=== PATIENT | female | born 1965 | race Caucasian/White ===

== ENCOUNTER → 2017-12-14 | Outpatient (CLI) | payer BC ==
[2017-12-14 14:16] LABS: ESTIMATED AVERAGE GLUCOSE 103 MG/DL (60-110); HEMOGLOBIN A1c 5.2 %
[2017-12-14 14:20] LABS: ALBUMIN 4.1 GM/DL (3.2-5.2); ALBUMIN/GLOBULIN RATIO 1.21 (1.00-1.93); ALKALINE PHOSPHATASE 83 U/L (45-117); ALT/SGPT 21 U/L (12-78); ANION GAP 7 MEQ/L (8-16); AST/SGOT 21 U/L (7-37); BILIRUBIN,TOTAL 0.7 MG/DL (0.2-1.0); BLOOD UREA NITROGEN 18 MG/DL (7-18); CALCIUM LEVEL 8.9 MG/DL (8.5-10.1); CARBON DIOXIDE LEVEL 28 MEQ/L (21-32); CHLORIDE LEVEL 106 MEQ/L (98-107); CHOLESTEROL LEVEL 215 MG/DL (<200); CHOLESTEROL RISK RATIO 2.986 (<5); CREATININE FOR GFR 0.59 MG/DL (0.55-1.30); FREE T4 1.11 NG/DL (0.76-1.46); GLOMERULAR FILTRATION RATE > 60.0 (>51); GLUCOSE, FASTING 102 MG/DL (70-100); HDL CHOLESTEROL 72 MG/DL (>40); LDL CHOLESTEROL 127.4 MG/DL (<100); NON-HDL-C 143 MG/DL; POTASSIUM SERUM 4.4 MEQ/L (3.5-5.1); SODIUM LEVEL 141 MEQ/L (136-145); TOTAL PROTEIN 7.5 GM/DL (6.4-8.2); TRIGLYCERIDES LEVEL 78 MG/DL (<150)
[2017-12-14 14:48] LABS: TOTAL 25(OH) VITAMIN D 25.9 NG/ML (30.0-100.0)
== END ==
LOC: M SMT 08:11
DX: F32.9 Major depressive disorder, single episode, unspecified (principal); E55.9 Vitamin D deficiency, unspecified; Z83.3 Family history of diabetes mellitus
CPT/HCPCS: 84443

== ENCOUNTER → 2018-08-16 | Outpatient (REF) | payer BC ==
[2018-08-16 18:49] LABS: AMORPHOUS SEDIMENT SMALL (NEGATIVE); APPEARANCE, URINE CLOUDY (CLEAR); BACTERIA, URINE AUTO 3+ (NEGATIVE); BILIRUBIN, URINE AUTO NEGATIVE (NEGATIVE); BLOOD, URINE BLOOD 3+ (NEGATIVE); COLOR, URINE YELLOW (YELLOW); GLUCOSE, URINE (UA) AUTO NEGATIVE (NEGATIVE); KETONE, URINE AUTO NEGATIVE (NEGATIVE); LEUKOCYTE ESTERASE, URINE AUTO 3+ (NEGATIVE); MUCUS, URINE SMALL (NEGATIVE); NITRITE, URINE AUTO POSITIVE (NEGATIVE); PROTEIN, URINE AUTO 1+ mg/dL (NEGATIVE); RBC, URINE AUTO 93 /HPF (0-3); SPECIFIC GRAVITY URINE AUTO 1.015 (1.002-1.035); SQUAMOUS EPITHELIAL CELL UR AU 1 /HPF (0-6); UROBILINOGEN, URINE AUTO 0.2 mg/dL (0.0-2.0); WBC, URINE AUTO 135 /HPF (0-3)
== END ==
LOC: M LAB REF 17:04
DX: N39.0 Urinary tract infection, site not specified (principal)
CPT/HCPCS: 81001

== ENCOUNTER → 2019-07-04 | Outpatient (CLI) | payer BC ==
[2019-07-04 13:58] LABS: FREE T4 1.06 NG/DL (0.76-1.46); THYROID STIMULATING HORMONE 1.56 uIU/ML (0.358-3.740)
[2019-07-04 14:04] LABS: TOTAL 25(OH) VITAMIN D 29.8 NG/ML (30.0-100.0)
== END ==
LOC: M SMT 09:49
PROVIDERS: ATTEND Nurse Practitioner Family
DX: E03.9 Hypothyroidism, unspecified (principal); E55.9 Vitamin D deficiency, unspecified

== ENCOUNTER → 2019-09-13 | Outpatient (REF) | payer BC ==
[2019-09-16 14:09] LABS: HPV HYBRID CAPTURE II Negative (Negative)
== END ==
LOC: M SFHCWAGY 09:34
PROVIDERS: ATTEND Nurse Practitioner Family
DX: Z12.4 Encounter for screening for malignant neoplasm of cervix (principal)
CPT/HCPCS: 87624; G0123

== ENCOUNTER → 2019-09-13 | Outpatient (CLI) | payer BC ==
--- NOTE | 2019-09-13 10:52 | REPMRS ---
Patient History The patient states she had a clinical breast exam in 08/2019. Family history of colorectal cancer at age 50 or over in maternal grandfather. 3D TOMOSYNTHESIS WAS PERFORMED. The Zaheer Murphy lifetime risk for breast cancer is 8.5%. Digital Woman Screen Mammo: September 13, 2019 - Exam #: [id number] Bilateral CC and MLO view(s) were taken. Technologist: Jo Danielson, Technologist Prior study comparison: April 01, 2016, digital woman screen mammo performed at [facility]. October 03, 2014, digital woman screen mammo performed at [facility]. FINDINGS: The breast tissue is heterogeneously dense. This may lower the sensitivity of mammography. There has been no change in the appearance of the mammogram from the prior studies. There is a moderate amount of residual fibroglandular tissue which is fairly symmetric. There is no interval development of dominant mass, areas of architectural distortion, or clustered microcalcification typical of malignancy. Assessment: BI-RADS/ACR category 1 mammogram. Negative Mammogram. Recommendation Routine screening mammogram in 1 year (for women over age 40). This mammogram was interpreted with the aid of an FDA-approved computer-aided dectection system. Electronically Signed By: Fitz Chong MD 09/13/19 [id number]
== END ==
LOC: M WHC 09:11
PROVIDERS: ATTEND Nurse Practitioner Family
DX: Z12.31 Encounter for screening mammogram for malignant neoplasm of breast (principal)

== ENCOUNTER → 2019-09-23 | Outpatient (CLI) | payer BC ==
--- NOTE | 2019-09-23 11:41 | REP ---
Pelvic ultrasound including transabdominal and endovaginal imaging: Next the the patient has had surgical removal of the uterus approximate 28 years ago. The bladder is moderately distended. There is no identifiable uterus. The right ovary could not be identified on transabdominal or endovaginal imaging. Left ovary: The left ovary measures 1.7 x 1.6 x 1.7 cm and is normal size. There is no dominant mass or cyst. There is no free fluid in the pelvis. Impression: The left ovary is unremarkable. The right ovary could not be identified. The uterus is surgically absent. Electronically Signed by Fitz Vincent MD 09/23/2019 11:34 A
== END ==
LOC: M RAD 10:34
PROVIDERS: ATTEND Nurse Practitioner Family
DX: R10.2 Pelvic and perineal pain (principal)

== ENCOUNTER 2021-04-01 14:50 | Observation (INO) | payer BC ==
[~2021-04-01] VITALS: Ht 165.1 cm; Wt 53.2 kg
[2021-04-01] MEDS ORDERED: VALA500T5 PO (15:03)
[2021-04-01] MEDS ORDERED: NS 1,000 ML IV ONE ×3 (15:40→18:45)
[2021-04-01] MEDS ORDERED: ONDANSETRON 4MG/2ML VIAL IV ONE ×2 (15:40→16:50)
--- NOTE | 2021-04-01 16:03 | REP ---
INDICATION: vomitiung. COMPARISON: None TECHNIQUE: The technique utilized in obtaining the radiograph has magnified the cardiac silhouette and attenuated the interstitial markings. FINDINGS: The superior mediastinal structures are midline. The heart is not enlarged. The diaphragmatic surfaces of the lungs are regular and the costophrenic angles are clear. The pulmonary davis are clear. The visualized osseous structures are intact. IMPRESSION: There is no acute cardiopulmonary disease. <Electronically signed by Adán Malik > 04/01/21 [id number]
[2021-04-01 16:24] LABS: BASO % 0.3 % (0.0-1.0); HEMATOCRIT 39.7 % (36.0-47.0); HEMOGLOBIN 13.4 g/dl (12.0-15.5); LYMPH # 0.6 10^3/uL (1.5-5.0); MEAN CORPUSCULAR HEMOGLOBIN 30.8 pg (27.0-33.0); MEAN CORPUSCULAR HGB CONC 33.8 g/dl (32.0-36.5); MEAN CORPUSCULAR VOLUME 91.3 fl (80.0-96.0); MONO # 0.1 10^3/uL (0.0-0.8); MONO % 1.1 % (2.0-8.0); NEUTROPHILS # 9.6 10^3/uL (1.5-8.5); NEUTROPHILS % 91.9 % (36.0-66.0); PLATELET COUNT, AUTOMATED 263 10^3/uL (150-450); RED BLOOD COUNT 4.35 10^6/uL (4.00-5.40); WHITE BLOOD COUNT 10.5 10^3/uL (4.0-10.0)
--- NOTE | 2021-04-01 16:33 | REP ---
INDICATION: headache, vomiting, sp hysterectomy. COMPARISON: 11/10/2014 TECHNIQUE: 4.5 mm contiguous transaxial sections were obtained from the skull base to the cerebral convexities with thin cuts through the posterior fossa without the administration of intravenous contrast. FINDINGS: The ventricles and sulci are consistent with the patient's age. There are no extra-axial fluid collections. There is no mass effect. The deep cerebral white matter is consistent with the patient's age. The orbital and petrous structures, cerebellopontine angles, and posterior fossa are unremarkable. The sella turcica, cavernous, and paracavernous structures are essentially unremarkable. The visualized portions of the paranasal sinuses and mastoid air cells are clear. Images of the skull base show no gross abnormality. IMPRESSION: Essentially unremarkable CT examination of the brain. No significant change from the prior exam. <Electronically signed by Adán Malik > 04/01/21 [id number]
[2021-04-01 16:44] LABS: ALT/SGPT 45 U/L (12-78); AMYLASE 42 U/L (25-115); BILIRUBIN,DIRECT 0.1 MG/DL (0.0-0.2); BILIRUBIN,TOTAL 0.4 MG/DL (0.2-1.0); CK-MB VALUE MASS 1.2 NG/ML (<3.6); CPK CREATINE PHOSPHOKINASE 75 U/L (26-192); LIPASE 48 U/L (73-393); TOTAL PROTEIN 7.6 GM/DL (6.4-8.2); TROPONIN I < 0.02 NG/ML (< 0.10)
[2021-04-01] MEDS ORDERED: MORPHINE 2 MG/ML 1ML VIAL (J2270) IV ONE (16:50)
[2021-04-01] MEDS ORDERED: ISOVUE-370 76% 100ML VIAL As Ordered ONE (17:29)
--- NOTE | 2021-04-01 18:29 | REPVR ---
PROCEDURE INFORMATION: Exam: CTA Chest With Contrast Exam date and time: 04/01/2021 5:32 PM Age: 55 years old Clinical indication: Shortness of breath; Additional info: SOB TECHNIQUE: Imaging protocol: Computed tomographic angiography of the chest with contrast. 3D rendering (Not supervised by radiologist): MIP and/or 3D reconstructed images were created by the technologist. Radiation optimization: All CT scans at this facility use at least one of these dose optimization techniques: automated exposure control; mA and/or kV adjustment per patient size (includes targeted exams where dose is matched to clinical indication); or iterative reconstruction. Contrast material: ISOVUE 370; Contrast volume: 100 ml; Contrast route: INTRAVENOUS (IV); COMPARISON: VT Chest, 1 view 04/01/2021 3:46 PM FINDINGS: Pulmonary arteries: No CT evidence of acute pulmonary embolism. Aorta: No CT evidence of acute thoracic aortic dissection, thoracic aneurysm or acute intramural thoracic aortic hematoma. Lungs: Both lungs are well-aerated. Multiple small peripheral pleural-based solid intrapulmonary nodules are seen in the right upper lobe, on images 35 through 66 of series 401. These measure less than 5 mm in AP diameter. Pleural spaces: See "Lungs" finding. Heart: The heart size is normal. Normal pulmonary vasculature. No significant coronary artery calcification is present. Lymph nodes: Unremarkable. No enlarged lymph nodes. Bones/joints: The bony structures of the chest are normal. Soft tissues: Unremarkable. IMPRESSION: 1. No CT evidence of acute pulmonary embolism. 2. No CT evidence of acute thoracic aortic dissection, thoracic aneurysm or acute intramural thoracic aortic hematoma. 3. The heart size is normal. Normal pulmonary vasculature. No significant coronary artery calcification is present. 4. Both lungs are well-aerated. Multiple small peripheral pleural-based solid intrapulmonary nodules are seen in the right upper lobe, on images 35 through 66 of series 401. These measure less than 5 mm in AP diameter. For patients at low risk for lung cancer (minimal or absent history of smoking and of other known risk factors), no routine follow-up is indicated. For patients at high risk (history of smoking or of other known risk factors), consider optional CT Chest at 12 months. Reference: Charis H, et al. Guidelines for Management of Incidental Pulmonary Nodules Detected on CT Images: From the Fleischner Society 2017. Radiology. 2017;284(1):228-243. 5. The bony structures of the chest are normal. Electronically signed by: Maninder Penaloza On 04/01/2021 18:29:26 PM
--- NOTE | 2021-04-01 18:34 | REPVR ---
PROCEDURE INFORMATION: Exam: CT Abdomen And Pelvis With Contrast Exam date and time: 04/01/2021 5:32 PM Age: 55 years old Clinical indication: Abdominal pain; Generalized; Additional info: Abdominal pain, vomtiing TECHNIQUE: Imaging protocol: Computed tomography of the abdomen and pelvis with contrast. Radiation optimization: All CT scans at this facility use at least one of these dose optimization techniques: automated exposure control; mA and/or kV adjustment per patient size (includes targeted exams where dose is matched to clinical indication); or iterative reconstruction. Contrast material: ISOVUE 370; Contrast volume: 100 ml; Contrast route: INTRAVENOUS (IV); COMPARISON: US PELVIC NON-OB COMPLETE 09/23/2019 10:51 AM FINDINGS: Liver: Normal. No mass. Gallbladder and bile ducts: Normal. No calcified stones. No ductal dilation. Pancreas: Normal. No ductal dilation. Spleen: Normal. No splenomegaly. Adrenal glands: Normal. No mass. Kidneys and ureters: Normal. No hydronephrosis. Stomach and bowel: Unremarkable. No obstruction. No mucosal thickening. Appendix: No evidence of appendicitis. Intraperitoneal space: Unremarkable. No free air. No significant fluid collection. Vasculature: Unremarkable. No abdominal aortic aneurysm. Lymph nodes: Unremarkable. No enlarged lymph nodes. Urinary bladder: Unremarkable as visualized. Reproductive: Unremarkable as visualized. Bones/joints: Unremarkable. No acute fracture. Soft tissues: Unremarkable. IMPRESSION: No acute findings. Electronically signed by: Maninder Penaloza On 04/01/2021 18:34:33 PM
--- NOTE | 2021-04-01 20:07 | HPEPDOC ---
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 Patient states that her headaches began last night and were severe in nature. Patient states that she took tylenol and motrin and went to bed and went to work this morning. Patient states that she subsequently developed nausea and severe vomiting. Patient states that she is not sure how much she has vomited but denies any hematemesis or coffee ground emesis. Patients states that as of my exam, she is having waves of severe nausea, mild/moderate abd pain and a sense of impending doom like she is going to vomit. Patient states that her symptoms come and go every few minutes. Patient states that she does not have a headache right now but it comes and goes as well. Patient also admits to rigors and fevers. Patient denies neck pain, neck stiffness, vision change, paresthesia, ataxia, hemiparesis, seizure activity, dark stool, bloody stool, calf pain, back pain, chest pain, sob. W/u in ED only significant for elevated lactic acid of 2.6] PAST MEDICAL HISTORY: 1. [Endometriosis PAST SURGICAL HISTORY: 1. [Reviewed - none SOCIAL HISTORY: Tobacco use:[Denies] ETOH: [Denies] Illicit drug use: [Denies] FAMILY HISTORY: Heart disease, NM ALLERGIES: Please see below. REVIEW OF SYSTEMS: CONSTITUTIONAL: [See HPI]. HEENT: [Denies uri sx.]. CARDIOVASCULAR: [See HPI]. RESPIRATORY: [See HPI]. GASTROINTESTINAL: [See HPI]. GENITOURINARY: [Denies dysuria]. SKIN: [Denies rash]. MUSCULOSKELETAL: [Denies back pain, neck pain.]. NEUROLOGICAL: [See HPI]. ENDOCRINE: [Denies hx of DM]. HEMATOLOGIC/LYMPHATIC: [Denies easy bruising]. HOME MEDICATIONS: Please see below. PHYSICAL EXAMINATION: VITAL SIGNS: Please see below. GENERAL APPEARANCE: [This is a 55y/o female who appears older than her stated age. Patient is restless in bed and rocking and rolling back and forth constantly during exam. Patient appears anxious and uncomfortable and is moaning frequently]. HEENT: [No mass or lesion. EOMI. No scleral icterus. Nares patent. oral mucosa dry. No tenderness to neck palpation. No nuchal rigidity. Bedside meningitis maneuvers negative.]. CARDIOVASCULAR: [Regular rate, rhythm. No murmurs, rubs, gallops]. LUNGS: [Good airflow appreciated b/l. No wheezing, rales, rhonchi.]. ABDOMEN: [Soft, tender to epigastric region.]. MUSCULOSKELETAL: [No joint deformity. ]. EXTREMITIES: [No peripheral edema noted. No overlying skin changes. Pulses palpable.]. NEUROLOGICAL: [Sensation grossly intact. Patient moves all fours freely during exam. Strength 5/5 b/l. Speech clear. A+Ox3. No focal deficits]. PSYCHIATRIC: [Mood and affect appear appropriate.]. LABORATORY DATA: See below. IMAGING: [Heat CT: FINDINGS: The ventricles and sulci are consistent with the patient's age. There are no extra-axial fluid collections. There is no mass effect. The deep cerebral white matter is consistent with the patient's age. The orbital and petrous structures, cerebellopontine angles, and posterior fossa are unremarkable. The sella turcica, cavernous, and paracavernous structures are essentially unremarkable. The visualized portions of the paranasal sinuses and mastoid air cells are clear. Images of the skull base show no gross abnormality. IMPRESSION: Essentially unremarkable CT examination of the brain. No significant change from the prior exam. CXR: FINDINGS: The superior mediastinal structures are midline. The heart is not enlarged. The diaphragmatic surfaces of the lungs are regular and the costophrenic angles are clear. The pulmonary davis are clear. The visualized osseous structures are intact. IMPRESSION: There is no acute cardiopulmonary disease FINDINGS: Liver: Normal. No mass. Gallbladder and bile ducts: Normal. No calcified stones. No ductal dilation. Pancreas: Normal. No ductal dilation. Spleen: Normal. No splenomegaly. Adrenal glands: Normal. No mass. Kidneys and ureters: Normal. No hydronephrosis. Stomach and bowel: Unremarkable. No obstruction. No mucosal thickening. Appendix: No evidence of appendicitis. Intraperitoneal space: Unremarkable. No free air. No significant fluid collection. Vasculature: Unremarkable. No abdominal aortic aneurysm. Lymph nodes: Unremarkable. No enlarged lymph nodes. Urinary bladder: Unremarkable as visualized. Reproductive: Unremarkable as visualized. Bones/joints: Unremarkable. No acute fracture. Soft tissues: Unremarkable. IMPRESSION: No acute findings. CTA Chest: FINDINGS: Pulmonary arteries: No CT evidence of acute pulmonary embolism. Aorta: No CT evidence of acute thoracic aortic dissection, thoracic aneurysm or acute intramural thoracic aortic hematoma. Lungs: Both lungs are well-aerated. Multiple small peripheral pleural-based solid intrapulmonary nodules are seen in the right upper lobe, on images 35 through 66 of series 401. These measure less than 5 mm in AP diameter. Pleural spaces: See "Lungs" finding. Heart: The heart size is normal. Normal pulmonary vasculature. No significant coronary artery calcification is present. Lymph nodes: Unremarkable. No enlarged lymph nodes. Bones/joints: The bony structures of the chest are normal. Soft tissues: Unremarkable. IMPRESSION: 1. No CT evidence of acute pulmonary embolism. 2. No CT evidence of acute thoracic aortic dissection, thoracic aneurysm or acute intramural thoracic aortic hematoma. 3. The heart size is normal. Normal pulmonary vasculature. No significant coronary artery calcification is present. 4. Both lungs are well-aerated. Multiple small peripheral pleural-based solid intrapulmonary nodules are seen in the right upper lobe, on images 35 through 66 of series 401. These measure less than 5 mm in AP diameter. For patients at low risk for lung cancer (minimal or absent history of smoking and of other known risk factors), no routine follow-up is indicated. For patients at high risk (history of smoking or of other known risk factors), consider optional CT Chest at 12 months. ] MICROBIOLOGY: Please see below. ASSESSMENT: [This is a 55 y/o female with a pmh of recently diagnosed HSV being treated with daily oral suppressive valtrex who presents to the ED with with her with cc of acute onset headache, and intractable nausea/vomiting x1 day. Workup done so far has been grossly unrevealing.]. . PLAN: 1. [Headache/Nausea/Vomiting - Unclear etiology at this time. Broad ddx includes cannabinoid hyperemesis syndrome, norovirus, gastroenteritis, valtrex toxicity, NM preclude - Elevated lactic in ED likely secondary to repeated vomiting - IV fluid rehydration, zofran and reglan for n/v, toradol for abd pain - Monitor for fevers to discern infectious etiology - Trend troponins overnight to r/o mi prelude - Patient denies recreational drug use, however a uds showed high cannabinoids l ending credence to possible cannabinoid hyperemesis - Holding valtrex at this time to see if patient's symptoms improve without it. Patient has slightly elevated AST which could reflect some toxicity as this is her only daily medication. - Admit to med surg tele for symptomatic treatment and monitoring 2. Lung nodules - Incidental finding on CT. Can follow up outpatient for arrangement of monitor ing. DVT prophylaxis - Teds and SCDs]. Vital Signs Vital Signs Date Time Temp Pulse Resp B/P (MAP) Pulse Ox O2 Delivery O2 Flow Rate FiO2 04/01/21 18:30 04/01/21 18:30 97.7 78 18 100 Room Air Laboratory Data Labs 24H Laboratory Tests 2 04/01/21 15:39: POC Glucose (Misc Panel) 187H, POC Sodium (Misc Panel) 141, POC Potassium (Misc Panel) 3.5, POC Chloride (Misc Panel) 106, POC Total CO2 (Misc Panel) 24.0, POC Blood Urea Nitrogen (Misc Panel 20, POC Ionized Calcium (Misc Panel) 4.6, POC Creatinine (Misc Panel) 0.5L, POC Hematocrit (Misc Panel) 41.0 04/01/21 16:01: Immature Granulocyte % (Auto) 0.7, Neutrophils (%) (Auto) 91.9H, Lymphocytes (%) (Auto) 6.0L, Monocytes (%) (Auto) 1.1L, Eosinophils (%) (Auto) 0.0, Basophils (%) (Auto) 0.3, Neutrophils # (Auto) 9.6H, Lymphocytes # (Auto) 0.6L, Monocytes # (Auto) 0.1, Eosinophils # (Auto) 0.0, Basophils # (Auto) 0.0, Nucleated Red Blood Cells % (auto) 0.0, Urine Color YELLOW, Urine Appearance CLOUDYH, Urine pH 9.0, Urine Specific [place] 1.017, Urine Protein 1+H, Urine Glucose (UA) 2+H, Urine Ketones 2+H, Urine Blood 1+H, Urine Nitrite NEGATIVE, Urine Bilirubin NEGATIVE, Urine Urobilinogen 0.2, Urine Leukocyte Esterase NEGATIVE, Urine WBC (Auto) 10H, Urine RBC (Auto) 5H, Urine Hyaline Casts (Auto) 0, Urine Bacteria (Auto) NEGATIVE, Urine Squamous Epithelial Cells 0, Urine Amorphous Sediment SMALLH, Urine Sperm (Auto) , Lactic Acid Level 2.6*H, Total Bilirubin 0.4, Direct Bilirubin 0.1, Aspartate Amino Transf (AST/SGOT) 38H, Alanine Aminotransferase (ALT/SGPT) 45, Alkaline Phosphatase 78, Total Creatine Kinase 75, Creatine Kinase MB 1.2, Creatine Kinase MB Relative Index 1.60, Troponin I < 0.02, Total Protein 7.6, Albumin 4.0, Albumin/Globulin Ratio 1.1L, Amylase Level 42, Lipase 48L 04/01/21 18:35: CBC/BMP Laboratory Tests 04/01/21 16:01 Microbiology Microbiology 04/01/21 Respiratory Virus Panel (PCR) (MARIO), Received Pending 04/01/21 Blood Culture, Received Pending 04/01/21 Blood Culture, Received Pending Home Medications Scheduled Valacyclovir HCl (Valacyclovir) 500 Mg Tablet, 500 MG PO DAILY Allergies Coded Allergies: No Known Drug Allergies (Verified Allergy, Unknown, 04/01/21) A-FIB/CHADSVASC A-FIB History Current/History of A-Fib/PAF?: No Attending Note Attending Note time of service 727pm Ms. Tolentino is 55 yr old w endometriosis & hysterectomy who presented w c/o WRIGHT, n/v, cramping abdominal pain that precedes diarrhea and chills; she will be admitted to r/o ACS, lactic acidosis 2/2 dehydration, transaminitis and possible gastroenteritis. rest per TREY Castro's H&P TIMMY CASTRO April 01, 2021 20:07 NISHA SUMMERS MD April 01, 2021 20:44
[2021-04-01 20:34] LABS: CHLAMYDIA DNA AMPLIFICATION NEGATIVE (NEGATIVE); GC DNA AMPLIFICATION NEGATIVE (NEGATIVE)
[2021-04-01] MEDS: ONDANSETRON 4MG/2ML VIAL IV SCH (20:37)
[2021-04-01] MEDS: NS 1,000 ML IV SCH (20:37)
[2021-04-01] MEDS: KETOROLAC 30 MG/ML 1ML VIAL IV PRN (20:37)
[2021-04-01 20:46] LABS: AMPHETAMINES URINE REFLEX NEGATIVE (NEGATIVE); BARBITURATES URINE REFLEX NEGATIVE (NEGATIVE); BENZODIAZEPINES URINE REFLEX NEGATIVE (NEGATIVE); COCAINE METABOLITE URINE REFLE NEGATIVE (NEGATIVE); METHADONE URINE REFLEX NEGATIVE (NEGATIVE); OPIATES URINE REFLEX NEGATIVE (NEGATIVE); PHENCYCLIDINE URINE REFLEX NEGATIVE (NEGATIVE)
[2021-04-01 21:04] LABS: HEMOGLOBIN A1c 5.6 %
[2021-04-01 21:47] LABS: CANNABINOIDS URINE REFLEX PENDING CONFIRMATION (NEGATIVE)
[2021-04-01 21:58] LABS: HEPATITIS A ANTIBODY IGM NEGATIVE (NEGATIVE); HEPATITIS B CORE ANTIBODY IGM NEGATIVE (NEGATIVE); HEPATITIS B SURFACE ANTIGEN NEGATIVE (NEGATIVE)
[2021-04-01 22:31] VITALS: BP 157/97
[2021-04-01] MEDS ORDERED: METOCLOPRAMIDE INJ 10MG/2ML VIAL (J2765 PER 1) IV PRN (22:50)
[2021-04-01] MEDS ORDERED: ONDANSETRON 4MG/2ML VIAL IV SCH ×2 (23:00)
[2021-04-02] MEDS: ONDANSETRON 4MG/2ML VIAL IV SCH ×2 (01:58→08:00)
[2021-04-02 02:00] VITALS: BP 98/60
[2021-04-02] MEDS: NS 1,000 ML IV SCH (05:28)
--- NOTE | 2021-04-02 05:58 | ECGEPIP ---
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
[2021-04-02 06:00] VITALS: BP 100/59
[2021-04-02 06:28] LABS: HEMATOCRIT 35.2 % (36.0-47.0); HEMOGLOBIN 11.8 g/dl (12.0-15.5); MEAN CORPUSCULAR HEMOGLOBIN 30.8 pg (27.0-33.0); MEAN CORPUSCULAR HGB CONC 33.5 g/dl (32.0-36.5); MEAN CORPUSCULAR VOLUME 91.9 fl (80.0-96.0); PLATELET COUNT, AUTOMATED 218 10^3/uL (150-450); RED BLOOD COUNT 3.83 10^6/uL (4.00-5.40); WHITE BLOOD COUNT 11.1 10^3/uL (4.0-10.0)
[2021-04-02 06:52] LABS: BLOOD UREA NITROGEN 16 MG/DL (7-18); CALCIUM LEVEL 8.2 MG/DL (8.5-10.1); CARBON DIOXIDE LEVEL 24 MEQ/L (21-32); CHLORIDE LEVEL 111 MEQ/L (98-107); CREATININE FOR GFR 0.52 MG/DL (0.55-1.30); GLOMERULAR FILTRATION RATE > 60.0 (>51); GLUCOSE, FASTING 116 MG/DL (70-100); POTASSIUM SERUM 3.3 MEQ/L (3.5-5.1); SODIUM LEVEL 144 MEQ/L (136-145); TROPONIN I < 0.02 NG/ML (< 0.10)
[2021-04-02] MEDS ORDERED: POTASSIUM CHLORIDE 10 MEQ SR TABLET PO ONE (08:00)
[2021-04-02 08:52] LABS: MAGNESIUM LEVEL 1.7 MG/DL (1.8-2.4); TROPONIN I < 0.02 NG/ML (< 0.10)
[2021-04-02] MEDS ORDERED: valACYclovir HCL 500 MG TAB PO SCH (09:00)
[2021-04-02] MEDS ORDERED: ONDA-83 PO (10:19)
[2021-04-02] MEDS ORDERED: MAG SULF 1GM/100ML (MAG RUN) 1 GM in IV 1 EA IV ONE (10:30)
[2021-04-02] MEDS: KETOROLAC 30 MG/ML 1ML VIAL IV PRN (13:15)
--- NOTE | 2021-04-02 14:20 | DS.PDOC ---
Discharge Summary General Date of Admission April 01, 2021 at 14:51 Date of Discharge 04/02/21 Primary Care Physician: ARIADNE TSE NP Attending Physician: BRUNO FAROOQ MD Discharge Summary PROCEDURES PERFORMED DURING STAY: [None]. ADMITTING DIAGNOSES: 1. Intractable Nausea, vomiting, headache 2. Lung Nodules DISCHARGE DIAGNOSES: 1. Intractable Nausea, vomiting, headache 2. Lung Nodules COMPLICATIONS/CHIEF COMPLAINT: Nausea Vomiting. HISTORY OF PRESENT ILLNESS: Patient is a 55 year old female with a past medical history significant for HSV and Endometriosis who presented to the [facility] ER with complaint of headache, nausea, and vomiting for 1 day duration. She had stated that she had developed a headache the night before. She had taken tylenol and motrin and went to bed. In the morning she had stated that she developed nausea and vomiting. She had stated that she had difficulty keeping anything down. She had denied any fevers or chills. She denies any other symptoms with exception to headache, nausea, and vomiting. In the ED the patient was given IV fluid. She was given antiemtics and Toradol for her headache. The patient was admitted and placed on a clear liquid diet. The following morning the patients headache and vomiting resolved. She did still have some nausea but otherwise felt well. She did state that she was recently started on Valtrex for HSV and was wondering if her nausea vomiting was secondary to this. Patient was reassured that her nausea and vomiting was likely secondary to a migraine/headache or a viral gastroenteritis. Her diet was advanced and patient was discharged with zofran prn for nausea HOSPITAL COURSE: 1. Headache w/ intractable nausea and vomiting - Nausea and vomiting likely 2/2 headache/migraine or viral illness. -Headache resolved with Toradol and Reglan -Nausea and vomiting resolved with Reglan and Zofran and resolution of headache -Patients diet advanced as tolerated. Patient instructed to continue a bland diet and advance slowly 2. Lung nodules - Patient noted to have small peripheral pleural based solid intrapulmonary nodules in the right upper lobe measuring 5 mm in AP diameter -Patient denies any history of smoking. IF non-smoker then no need for follow- up. If patient is a smoker recommended repeat CT chest in 12 months. -Patient instructed to follow-up with her PCP 3. Electrolyte disturbance -Patient with hypokalemia and hypomagnesemia. Magnesium and Potassium replaced DISCHARGE MEDICATIONS: Please see below. ALLERGIES: Please see below. PHYSICAL EXAMINATION ON DISCHARGE: VITAL SIGNS: Please see below. GENERAL: Awake, alert, and oriented. Appears in no acute distress. Lying comfortably in bed HEENT: Atraumatic, normocephalic. eyes are nonicteric. trachea is midline. Mucous membranes are pink and moist NECK: No palpable cervical, axillary, or supraclavicular lymphadenopathy CARDIOVASCULAR EXAMINATION: Normal S1 ,S2. Regular rate and rhythm. No clicks rubs or murmurs RESPIRATORY EXAMINATION: Clear vesicular breath sounds bilaterally. Good respiratory effort. No wheezes, rhonchi or rales ABDOMINAL EXAMINATION: Soft, nondistended. Nontender. Normoactive bowel sounds throughout EXTREMITIES: No edema. Full and equal pulses in bilateral upper and lower extremities SKIN: No rashes or lesions NEUROLOGICAL EXAMINATION: No focal neurological deficits PSYCHIATRIC EXAMINATION: Mood and affect appear appropriate LABORATORY DATA: Please see below. IMAGING: INDICATION: headache, vomiting, sp hysterectomy. COMPARISON: 11/10/2014 TECHNIQUE: 4.5 mm contiguous transaxial sections were obtained from the skull base to the cerebral convexities with thin cuts through the posterior fossa without the administration of intravenous contrast. FINDINGS: The ventricles and sulci are consistent with the patient's age. There are no extra-axial fluid collections. There is no mass effect. The deep cerebral white matter is consistent with the patient's age. The orbital and petrous structures, cerebellopontine angles, and posterior fossa are unremarkable. The sella turcica, cavernous, and paracavernous structures are essentially unremarkable. The visualized portions of the paranasal sinuses and mastoid air cells are clear. Images of the skull base show no gross abnormality. IMPRESSION: Essentially unremarkable CT examination of the brain. No significant change from the prior exam. INDICATION: vomiting. COMPARISON: None TECHNIQUE: The technique utilized in obtaining the radiograph has magnified the cardiac silhouette and attenuated the interstitial markings. FINDINGS: The superior mediastinal structures are midline. The heart is not enlarged. The diaphragmatic surfaces of the lungs are regular and the costophrenic angles are clear. The pulmonary davis are clear. The visualized osseous structures are intact. IMPRESSION: There is no acute cardiopulmonary disease. PROCEDURE INFORMATION: Exam: CT Abdomen And Pelvis With Contrast Exam date and time: 04/01/2021 5:32 PM Age: 55 years old Clinical indication: Abdominal pain; Generalized; Additional info: Abdominal pain, vomiting TECHNIQUE: Imaging protocol: Computed tomography of the abdomen and pelvis with contrast. Radiation optimization: All CT scans at this facility use at least one of these dose optimization techniques: automated exposure control; mA and/or kV adjustment per patient size (includes targeted exams where dose is matched to clinical indication); or iterative reconstruction. Contrast material: ISOVUE 370; Contrast volume: 100 ml; Contrast route: INTRAVENOUS (IV); COMPARISON: US PELVIC NON-OB COMPLETE 09/23/2019 10:51 AM FINDINGS: Liver: Normal. No mass. Gallbladder and bile ducts: Normal. No calcified stones. No ductal dilation. Pancreas: Normal. No ductal dilation. Spleen: Normal. No splenomegaly. Adrenal glands: Normal. No mass. Kidneys and ureters: Normal. No hydronephrosis. Stomach and bowel: Unremarkable. No obstruction. No mucosal thickening. Appendix: No evidence of appendicitis. Intraperitoneal space: Unremarkable. No free air. No significant fluid collection. Vasculature: Unremarkable. No abdominal aortic aneurysm. Lymph nodes: Unremarkable. No enlarged lymph nodes. Urinary bladder: Unremarkable as visualized. Reproductive: Unremarkable as visualized. Bones/joints: Unremarkable. No acute fracture. Soft tissues: Unremarkable. IMPRESSION: No acute findings. PROCEDURE INFORMATION: Exam: CTA Chest With Contrast Exam date and time: 04/01/2021 5:32 PM Age: 55 years old Clinical indication: Shortness of breath; Additional info: SOB TECHNIQUE: Imaging protocol: Computed tomographic angiography of the chest with contrast. 3D rendering (Not supervised by radiologist): MIP and/or 3D reconstructed images were created by the technologist. Radiation optimization: All CT scans at this facility use at least one of these dose optimization techniques: automated exposure control; mA and/or kV adjustment per patient size (includes targeted exams where dose is matched to clinical indication); or iterative reconstruction. Contrast material: ISOVUE 370; Contrast volume: 100 ml; Contrast route: INTRAVENOUS (IV); COMPARISON: ND Chest, 1 view 04/01/2021 3:46 PM FINDINGS: Pulmonary arteries: No CT evidence of acute pulmonary embolism. Aorta: No CT evidence of acute thoracic aortic dissection, thoracic aneurysm or acute intramural thoracic aortic hematoma. Lungs: Both lungs are well-aerated. Multiple small peripheral pleural-based solid intrapulmonary nodules are seen in the right upper lobe, on images 35 through 66 of series 401. These measure less than 5 mm in AP diameter. Pleural spaces: See "Lungs" finding. Heart: The heart size is normal. Normal pulmonary vasculature. No significant coronary artery calcification is present. Lymph nodes: Unremarkable. No enlarged lymph nodes. Bones/joints: The bony structures of the chest are normal. Soft tissues: Unremarkable. IMPRESSION: 1. No CT evidence of acute pulmonary embolism. 2. No CT evidence of acute thoracic aortic dissection, thoracic aneurysm or acute intramural thoracic aortic hematoma. 3. The heart size is normal. Normal pulmonary vasculature. No significant coronary artery calcification is present. 4. Both lungs are well-aerated. Multiple small peripheral pleural-based solid intrapulmonary nodules are seen in the right upper lobe, on images 35 through 66 of series 401. These measure less than 5 mm in AP diameter. For patients at low risk for lung cancer (minimal or absent history of smoking and of other known risk factors), no routine follow-up is indicated. For patients at high risk (history of smoking or of other known risk factors), consider optional CT Chest at 12 months. Reference: Charis Valverde, et al. Guidelines for Management of Incidental Pulmonary Nodules Detected on CT Images: From the Fleischner Society 2017. Radiology. 2017;284(1):228-243. 5. The bony structures of the chest are normal. PROGNOSIS: Good ACTIVITY: [As tolerated]. DIET: As tolerated. Advance slowly. Camp foods to start DISCHARGE PLAN: Patient is to be discharged home. Follow-up with PCP in 7-10 days. Encourage PO intake. DISCHARGE CONDITION: [Stable]. TIME SPENT ON DISCHARGE: 35 minutes. Vital Signs/I&Os Vital Signs Date Time Temp Pulse Resp B/P (MAP) Pulse Ox O2 Delivery O2 Flow Rate FiO2 04/02/21 06:00 98.7 80 18 100/59 (73) 100 Room Air I&O- Last 24 Hours up to 6 AM 04/02/21 06:00 Intake Total 3300 ml Output Total 450 ml Balance 2850 ml Laboratory Data Labs 24H Laboratory Tests 2 04/01/21 15:39: POC Glucose (Misc Panel) 187H, POC Sodium (Misc Panel) 141, POC Potassium (Misc Panel) 3.5, POC Chloride (Misc Panel) 106, POC Total CO2 (Misc Panel) 24.0, POC Blood Urea Nitrogen (Misc Panel 20, POC Ionized Calcium (Misc Panel) 4.6, POC Creatinine (Misc Panel) 0.5L, POC Hematocrit (Misc Panel) 41.0 04/01/21 16:01: Immature Granulocyte % (Auto) 0.7, Neutrophils (%) (Auto) 91.9H, Lymphocytes (%) (Auto) 6.0L, Monocytes (%) (Auto) 1.1L, Eosinophils (%) (Auto) 0.0, Basophils (%) (Auto) 0.3, Neutrophils # (Auto) 9.6H, Lymphocytes # (Auto) 0.6L, Monocytes # (Auto) 0.1, Eosinophils # (Auto) 0.0, Basophils # (Auto) 0.0, Nucleated Red Blood Cells % (auto) 0.0, Urine Color YELLOW, Urine Appearance CLOUDYH, Urine pH 9.0, Urine Specific [place] 1.017, Urine Protein 1+H, Urine Glucose (UA) 2+H, Urine Ketones 2+H, Urine Blood 1+H, Urine Nitrite NEGATIVE, Urine Bilirubin NEGATIVE, Urine Urobilinogen 0.2, Urine Leukocyte Esterase NEGATIVE, Urine WBC (Auto) 10H, Urine RBC (Auto) 5H, Urine Hyaline Casts (Auto) 0, Urine Bacteria (Auto) NEGATIVE, Urine Squamous Epithelial Cells 0, Urine Amorphous Sediment SMALLH, Urine Sperm (Auto) , Lactic Acid Level 2.6*H, Total Bilirubin 0.4, Direct Bilirubin 0.1, Aspartate Amino Transf (AST/SGOT) 38H, Alanine Aminotra nsferase (ALT/SGPT) 45, Alkaline Phosphatase 78, Total Creatine Kinase 75, Creatine Kinase MB 1.2, Creatine Kinase MB Relative Index 1.60, Troponin I < 0.02, Total Protein 7.6, Albumin 4.0, Albumin/Globulin Ratio 1.1L, Amylase Level 42, Lipase 48L 04/01/21 18:35: Urine Opiates Screen NEGATIVE, Urine Methadone Screen NEGATIVE, Urine Barbiturates Screen NEGATIVE, Urine Phencyclidine Screen NEGATIVE, Urine Amphetamines Screen NEGATIVE, Urine Benzodiazepines Screen NEGATIVE, Urine Cocaine Metabolite Screen NEGATIVE, Urine Cannabinoids Screen PENDING CONFIRMATIONH, Chlamydia trachomatis DNA (SEGUN) NEGATIVE, Neisseria gonorrhoeae DNA (SEGUN) NEGATIVE, Trichomonas vaginalis (PCR) NOT DETECTED 04/01/21 20:19: Troponin I < 0.02, Estimated Mean Plasma Glucose 114H, Hemoglobin A1c 5.6, Lactic Acid Followup at 4 Hours 1.6, Hepatitis A IgM Antibody NEGATIVE, Hep atitis B Surface Antigen NEGATIVE, Hepatitis B Core IgM Antibody NEGATIVE, Hepatitis C Antibody Index 0.0 04/01/21 22:46: Troponin I < 0.02 04/02/21 01:55: Troponin I < 0.02 04/02/21 06:09: Troponin I < 0.02, Nucleated Red Blood Cells % (auto) 0.0, Anion Gap 9, Glomerular Filtration Rate > 60.0, Calcium Level 8.2L 04/02/21 08:05: Troponin I < 0.02, Magnesium Level 1.7L 04/02/21 09:02: Troponin I < 0.02 CBC/BMP Laboratory Tests 04/01/21 16:01 04/02/21 06:09 Microbiology Microbiology 04/01/21 Respiratory Virus Panel (PCR) (MARIO) - Final, Complete 04/01/21 Blood Culture, Received Pending 04/01/21 Blood Culture, Received Pending Discharge Medications Scheduled Valacyclovir HCl (Valacyclovir) 500 Mg Tablet, 500 MG PO DAILY, (Reported) Scheduled PRN Ondansetron HCl (Ondansetron HCl) 4 Mg Tablet, 4 MG PO Q4HP PRN for naus ea/vomiting Allergies Coded Allergies: No Known Drug Allergies (Verified Allergy, Unknown, 04/01/21) GME ATTESTATION GME ATTESTATION My faculty preceptor for this patient encounter was physically present during the encounter and was fully available. All aspects of the patient interview, examination, medical decision making process, and medical care plan development were reviewed and approved by the faculty preceptor. The faculty preceptor is aware and concurs with the plan as stated in the body of this note and will at test to such by his/her cosignature. ATTENDING NOTE I, Bruno Farooq, have independently examined this patient and performed my own physical exam, as well as reviewed the documentation and edited where necessary. I have discussed in detail with the resident / student the findings and plan of treatment as documented by the resident / student and edited their note. I agree with their findings and treatment plan and have edited their documentation. I will continue to follow the patient during this hospital stay. Time spent on discharge 20 minutes MATT MATTHEW DO April 02, 2021 14:20 BRUNO FAROOQ MD April 02, 2021 15:03
[2021-04-03 20:14] LABS: HSV IgM TYPES 1&2 1.37 Ratio (0.00-0.90)
[2021-04-06 00:07] LABS: Cannabinoid Positive (.); GC Carboxy THC >300 ng/mL (Cutoff=10)
== END 2021-04-02 14:33 | disposition home or self-care (01) ==
LOC: M ED 14:50 → M ED INP 14:51 → ENRESERVDT 21:21 → ENRESERVTM 21:21 → M MSPAV 22:31
PROVIDERS: ADMIT Internal Medicine; ATTEND Internal Medicine
DX: R11.2 Nausea with vomiting, unspecified (principal); R51.9 Headache, unspecified; R91.8 Other nonspecific abnormal finding of lung field; E83.42 Hypomagnesemia; E87.6 Hypokalemia; R50.9 Fever, unspecified; B00.9 Herpesviral infection, unspecified; N80.9 Endometriosis, unspecified; Z79.899 Other long term (current) drug therapy
CPT/HCPCS: 36415; 70450; 71045; 71275; 74177; 80047; 80048; 80076; 80307; 82150; 82550; 82553; 83036; 83605; 83690; 83735; 84484; 85025; 85027; 86694; 86705; 86709; 86803; 87040; 87340; 87661; 87798; 93005; 93041; 96361; 96374; 96375; 96376; 99285; G0480; J1885; J2270; J2405; J2765; J3475; Q9967

== ENCOUNTER 2021-04-04 13:44 | Inpatient (IN) | payer BC ==
[~2021-04-04] VITALS: Ht 165.1 cm; Wt 52.5 kg
[~2021-04-04 13:44] MED LIST: ONDA-83 PO; VALA500T5 PO
[2021-04-04] MEDS ORDERED: LIDOCAINE 2% 5ML JELLY UROJET TOP ONE (14:35)
--- NOTE | 2021-04-04 15:08 | REP ---
INDICATION: Altered Mental Status. COMPARISON: Comparison head CT study 01 Apr 2021.. TECHNIQUE: Helical scanning is acquired. 5 mm axial images were reformatted. Coronal MPR images were generated. FINDINGS: Bone window settings demonstrate an intact bony calvarium. There is no evidence of skull fracture or incidental bony calvarial lesion. The visualized paranasal sinuses appear clear. No intraorbital abnormality is seen. On soft tissue window setting images; the lateral, third, and fourth ventricles are normal in size and position. Chong-white differentiation pattern is normal above and below the tentorium. There are is no evidence of intracranial hemorrhage. No mass, edema, infarction, or midline shift is seen. No extra-axial fluid collection is appreciated. IMPRESSION: Negative noncontrast head CT. <Electronically signed by Mayur Woods > 04/04/21 [id number]
[2021-04-04 15:17] LABS: BASO % 0.1 % (0.0-1.0); HEMATOCRIT 40.4 % (36.0-47.0); HEMOGLOBIN 14.1 g/dl (12.0-15.5); LYMPH # 0.9 10^3/uL (1.5-5.0); LYMPH % 6.9 % (24.0-44.0); MEAN CORPUSCULAR HEMOGLOBIN 31.3 pg (27.0-33.0); MEAN CORPUSCULAR HGB CONC 34.9 g/dl (32.0-36.5); MEAN CORPUSCULAR VOLUME 89.8 fl (80.0-96.0); MONO # 0.8 10^3/uL (0.0-0.8); MONO % 5.8 % (2.0-8.0); NEUTROPHILS # 11.6 10^3/uL (1.5-8.5); NEUTROPHILS % 86.7 % (36.0-66.0); PLATELET COUNT, AUTOMATED 230 10^3/uL (150-450); WHITE BLOOD COUNT 13.3 10^3/uL (4.0-10.0)
[2021-04-04] MEDS ORDERED: LIDOCAINE 1% MDV 20ML VIAL IM ONE (15:25)
--- NOTE | 2021-04-04 15:25 | REP ---
INDICATION: Altered Mental Status. COMPARISON: 04/01/2021. TECHNIQUE: Single portable AP view of the chest was performed. FINDINGS: There is no acute infiltrate or pulmonary edema. Lungs are clear. The heart is not significantly enlarged. The mediastinal silhouette is unremarkable. The visualized osseous structures are intact. IMPRESSION: No acute pulmonary disease. <Electronically signed by Fitz Chong > 04/04/21 [id number]
[2021-04-04] MEDS ORDERED: ACETAMINOPHEN 650 MG SUPP PR ONE (15:40)
[2021-04-04] MEDS ORDERED: VANCOMYCIN HCL 1,000 MG, VIAL MATE ADAPTER 1 EACH in NS 250 ML IV ONE (15:40)
[2021-04-04] MEDS ORDERED: AMPICILLIN SOD 2 GM in D5W 50 ML IV ONE (15:40)
[2021-04-04] MEDS ORDERED: cefTRIAXone SOD 2 GM in D5W MINI-BAG PLUS 50 ML IV ONE (15:40)
[2021-04-04] MEDS ORDERED: dexameTHASONE 20MG/5ML VIAL (J1100 PER 1MG) IV ONE (15:40)
[2021-04-04] MEDS ORDERED: ISOVUE-370 76% 100ML VIAL As Ordered ONE (15:45)
[2021-04-04] MEDS ORDERED: ACYCLOVIR 500 MG in D5W MINI-BAG PLUS 100 ML IV ONE (15:50)
[2021-04-04] MEDS ORDERED: ONDA4TAB6 PO (15:50)
[2021-04-04] MEDS ORDERED: IBUP200C28 PO (15:50)
[2021-04-04] MEDS ORDERED: NS 1,000 ML IV ONE (15:55)
[2021-04-04 16:01] LABS: AMPHETAMINES LEVEL URINE NEGATIVE (NEGATIVE); BARBITURATES URINE NEGATIVE (NEGATIVE); BENZODIAZEPINES URINE NEGATIVE (NEGATIVE); CANNABINOIDS URINE POSITIVE (NEGATIVE); COCAINE METABOLITE URINE NEGATIVE (NEGATIVE); METHADONE URINE NEGATIVE (NEGATIVE); OPIATES URINE NEGATIVE (NEGATIVE); PHENCYCLIDINE URINE NEGATIVE (NEGATIVE)
[2021-04-04 16:05] LABS: ACETAMINOPHEN LEVEL < 2.0 UG/ML (10.0-30.0); ALBUMIN 3.8 GM/DL (3.2-5.2); ALT/SGPT 115 U/L (12-78); BILIRUBIN,DIRECT 0.3 MG/DL (0.0-0.2); BLOOD UREA NITROGEN 11 MG/DL (7-18); CALCIUM LEVEL 8.8 MG/DL (8.5-10.1); CARBON DIOXIDE LEVEL 26 MEQ/L (21-32); CHLORIDE LEVEL 101 MEQ/L (98-107); CK-MB VALUE MASS 1.4 NG/ML (<3.6); CPK CREATINE PHOSPHOKINASE 78 U/L (26-192); CREATININE FOR GFR 0.51 MG/DL (0.55-1.30); ETHYL ALCOHOL (ETHANOL) 0.008 % (0.000-0.010); GLOMERULAR FILTRATION RATE > 60.0 (>51); GLUCOSE, FASTING 127 MG/DL (70-100); LIPASE 106 U/L (73-393); MB/CK RELATIVE INDEX 1.79 (< OR =4); POTASSIUM SERUM 3.4 MEQ/L (3.5-5.1); SALICYLATE LEVEL < 1.7 MG/DL (5.0-30.0); SODIUM LEVEL 135 MEQ/L (136-145); TOTAL PROTEIN 7.4 GM/DL (6.4-8.2); TROPONIN I < 0.02 NG/ML (< 0.10)
[2021-04-04] MEDS ORDERED: VANCOMYCIN HCL 750 MG, VIAL MATE ADAPTER 1 EACH in NS 250 ML IV ONE (16:15)
--- NOTE | 2021-04-04 16:21 | REP ---
INDICATION: sepsis, abdl pain, altered mental status COMPARISON: 04/01/2021 TECHNIQUE: CT angiography chest after the intravenous administration of 75 cc Isovue 370 FINDINGS: Once again, there is excellent visualization of the pulmonary arterial vasculature. No focal filling defects have developed that would be considered consistent with acute pulmonary emboli. The thoracic aorta is within normal limits. There is no mediastinal or hilar adenopathy. There is a small to moderate right pleural effusion which has developed since the last exam. There is no change in the imaged upper abdomen or imaged osseous structures. Evaluation of the lung davis shows biapical pleuroparenchymal scarring status quo. There is bilateral dependent subsegmental atelectatic change with compressive atelectatic change in the right lung base due to the effusion. IMPRESSION: 1. No evidence of a pulmonary embolus. 2. New right pleural effusion as described above. 3. Other findings as described above. <Electronically signed by Adán Malik > 04/04/21 [id number]
--- NOTE | 2021-04-04 16:26 | REP ---
INDICATION: sepsis, abdl pain, altered mental status. COMPARISON: 04/01/2021 the latest prior TECHNIQUE: Standard helical technique after the intravenous administration of 75 cc Isovue 370 FINDINGS: The liver, spleen, pancreas, adrenal glands, and kidneys are unchanged. The abdominal aorta and para-aortic regions are unchanged. There is a small to moderate amount of free fluid in the pelvis which has developed since the last exam. There is no evidence of free intraperitoneal air. There is no change in the abdominal aorta or para-regions. There is no significant change in appearance of the bowel loops or the mesenteries. There is no evidence of intestinal obstruction. There is no significant change in appearance of the osseous structures. IMPRESSION: The only significant change between today's examination on the prior examination of 04/01/2021 is the development of a moderate amount of free fluid seen in the pelvis. The etiology of this is uncertain. <Electronically signed by Adán Malik > 04/04/21 [id number]
[2021-04-04 16:32] LABS: CSF TUBE# GLU TUBE 3; CSF TUBE# TP TUBE 3; GLUCOSE CSF 79 MG/DL (40-75); TOTAL PROTEIN,CSF 46 MG/DL (15-45)
[2021-04-04 16:35] LABS: APPEARANCE, CSF CLEAR (CLEAR); COLOR, CSF COLORLESS (COLORLESS); CSF TUBE# CELL CNT TUBE 1
[2021-04-04] MEDS ORDERED: FLUID PLACE HOLDER IV SCH (17:25)
[2021-04-04] MEDS ORDERED: ACYCLOVIR IV SCH (17:25)
--- NOTE | 2021-04-04 17:58 | HPEPDOC ---
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 recent dx of lung nodules who presented to [facility] emergency room today via EMS after being found to be altered at home. The patient's symptoms started 03/30/2021 with severe frontal headache, 10 out of 10, worst of her life. The patient attempted to treat this with Tylenol Motrin this did not improve. She also had associative nausea with vomiting, nonbloody. She was brought to the ER and admitted for intractable nausea vomiting and headache possibly secondary to viral illness (), discharged home in improved condition. Upon arrival to home the patient initially felt well but later in the evening her states she began to complain of a severe frontal headache, intermittent, and/10. The patient slept well that evening and on 04/03/2021 she appeared to be slightly confused but not enough to be seriously concerned. Throughout the day it was noted the patient complained of chills and "freezing". This morning the patient was found to be delirious, could not recognize her family members and close friends. She had increased nausea and nonbloody vomitus and complained of abdominal tenderness along with her frontal headache again severe. She did not know her of over 30 years and did not know the place where she was at. She appeared to be slightly unsteady on her feet. She had no documented chest pain, shortness of breath, diarrhea. The patient was brought to emergency room via EMS for further evaluation. In the emergency room the patient had a fever of 100.5 F, all other vital signs were stable. She was severely confused and could not recall where she was or her 's name. She had mild elevation of AST/ALT 48/1:15. Sodium 135, potassium 3.4, glucose 127. ABG showed pH within normal limits. Lactic acid was normal. Urine drug screen showed cannabinoids only, similar to last admission. When her was asked about this, he has no recollection of her using drugs or cannabis. He states she might have taken a hit from a "THC pen" but she does not regularly smoke anything. CT of the brain was negative for acute changes when compared to her last only done several days prior. CT abd/pelvis: The only significant change between today's examination on the prior examination of 04/01/2021 is the development of a moderate amount of free fluid seen in the pelvis, etiology of this is uncertain. She had no active herpatic lesions on her body- with history of recurrent right buttocks HSV, herpes encephalitis was of concern. MRI was unable to be done due to increased delerium, agitation. LP was done with fluid showing minimal WBC, glucose 79 (H) and protein 46 (H). Dr. Pierce (infectious disease was called). Patient received dexamethasone, ampicillin, Rocephin, vancomycin and is likely her dose 1. UA + with UCx pending, BCx collected. She was started on IV fluids. The patient was admitted under hospitalist service for further evaluation of acute encephalopathy/delirium rule out meningitis vs other etiology. REVIEW OF SYSTEMS: Unable to obtain due to mental status. PAST MEDICAL HISTORY: Recurrent HSV on prophylactic Valtrex, history of recent hospitalization for intractable nausea and vomiting, ? lung nodules, endometriosis PAST SURGICAL HISTORY: Hysterectomy FAMILY HISTORY: Father: Did not know father, did not know history Mother: CAD. alive SOCIAL HISTORY: No smoking or alcohol use history. Positive cannabinoids on urine drug screen but the denies frequent use. She is currently employed, full code. No handicaps. Her healthcare proxy is her . She follows with dermatology, Dr. Almazan as outpatient for recurrent HSV per ALLERGIES: Please see below. HOME MEDICATIONS: Please see below. PHYSICAL EXAMINATION: VS: [id number], 7890, respiratory rate 1618, blood pressure 136/76, 99% room air CONSTITUTIONAL: Resting in bed, becomes agitated with examining, complains of severe chills and being wally, easily awakened but not oriented to person, place, time or people around her EYES: PERRLA, EOM intact HENT, MOUTH: Normocephalic, atraumatic, dry mucous membranes NECK: SUPPLE, no JVD, no lymphadenopathy, no carotid bruit CV: Regular rate and rhythm, S1S2 normal, no murmurs/rubs/gallops RESPIRATORY: Clear to auscultation bilaterally, no rales/rhonchi/wheezes GI: diffuse abdominal tenderness when palpated she expressed discomfort, BS pos itive in 4 quadrants, soft, nondistended, no rebound or guarding, no organomegaly : Deferred MUSCULOSKELETAL: Normal ROM. No cyanosis, clubbing, swelling, joint deformity, extremity edema INTEGUMENTARY: Intact, no rashes, no lesions, no erythema NEUROLOGIC: No focal deficits, confused,would not follow commands to test CN LABORATORY DATA: Please see below MICROBIOLOGY: BCx x 2 sets: pending UA +, UCx pending CSF fluid: Clear, WBC 7, glucose 79, protein 46 CSF culture: Pending CSF Gram stain: No cells, no organisms IMAGING: CT brain: No acute intracranial process CT abd/pelvis: The only significant change between today's examination on the prior examination of 04/01/2021 is the development of a moderate amount of free fluid seen in the pelvis. The etiology of this is uncertain. CT chest: 1. No evidence of a pulmonary embolus. 2. 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 recent dx of lung nodules admitted under hospitalist service for further evaluation of acute encephalopathy/delirium rule out meningitis vs other etiology. PLAN: Acute metabolic/infectious vs. toxic encephalopathy, r/o meningitis vs. other infectious source (i.e abd) -WBC 13.3, febrile, increased delerium, + severe frontal headache -Please see micro above, no active HSV lesions -New pleural effusion and incr free fluid in abd with abd tenderness - perhaps these are sources -COVID pending (recent COVID neg on 04/01/21) -Unknown as to why gonnorrhea, T. vaginalis and C. trachomatis DNA done 04/01/21 (last admission) but was NEG. No new sexual partners that are known. No s/s that would warrant vaginal exam -F/U UCx, BCx, CSF Cx, lyme studies, HIV -Also, patient is POS for cannabinoids, perhaps she smoked/took drugs and was laced with something not showing up on UDS? According to , never smokes or does drugs, has no drug history -Given empiric coverage with ampicillin, dexamethasone, rocephin, vancomycin and acyclovir in ER -Discussed case with Dr. Pierce. C/w ceftriaxone, acyclovir, IVFs, NPO status, neuro checks, MRI in the AM if able to sit still. Acute transaminitis perhaps 2/2 to acute infection -Present on last admission -AST 38 previously--> 48 today -ALT 45 and normal previously--> 115 today -Hepatitis panel done on 04/01/21 neg -CT abd/pelvis above with incr free fluid in abd? etiology uncertain -C/w IVFs, CMP daily. Avoid hepatotoxic meds Right pleural effusion, new -Saturating well on RA, no s/s of respiratory distress or infection -No documented cough, wheezing, crackles on exam -Monitor on tele UTI -UCx pending -Ceftriaxone Lung nodules, new diagnosis -Patient noted to have small peripheral pleural based solid intrapulmonary nodules in the right upper lobe measuring 5 mm in AP diameter, seen on CT chest 04/01/21 -denies any history of smoking. -Patient instructed to follow-up with her PCP and to get repeat CT as o/p Hx of recurrent HSV on prophylactic valtrex -Last reoccurence December 2020 -No active lesions seen. -See problem #1 GI px -PPI DVt px -Enoxaparin DISPOSITION: Admitted under acute inpatient, PCU with neuro checks. Monitor closely for neurological changes or worsening symptoms. at bedside and was updated on plan. ID consulted and will see 04/05/21. Vital Signs Vital Signs Date Time Temp Pulse Resp B/P (MAP) Pulse Ox O2 Delivery O2 Flow Rate FiO2 04/04/21 16:44 78 16 96 Room Air 04/04/21 15:29 100.5 04/04/21 13:53 136/72 Laboratory Data Labs 24H Laboratory Tests 2 04/04/21 14:48: POC Glucose (Misc Panel) 132H, POC Sodium (Misc Panel) 134L, POC Potassium (Misc Panel) 3.4L, POC Chloride (Misc Panel) 98, POC Total CO2 (Misc Panel) 26.0, POC Blood Urea Nitrogen (Misc Panel 12, POC Ionized Calcium (Misc Panel) 4.3L, POC Creatinine (Misc Panel) 0.4L, POC Hematocrit (Misc Panel) 42.0 5/20/21 14:52: Immature Granulocyte % (Auto) 0.5, Neutrophils (%) (Auto) 86.7H, Lymphocytes (%) (Auto) 6.9L, Monocytes (%) (Auto) 5.8, Eosinophils (%) (Auto) 0.0, Basophils (%) (Auto) 0.1, Neutrophils # (Auto) 11.6H, Lymphocytes # (Auto) 0.9L, Monocytes # (Auto) 0.8, Eosinophils # (Auto) 0.0, Basophils # (Auto) 0.0, Nucleated Red Blood Cells % (auto) 0.0, Anion Gap 8, Glomerular Filtration Rate > 60.0, Calcium Level 8.8, Total Bilirubin 1.0#, Direct Bilirubin 0.3H, Aspartate Amino Transf (AST/SGOT) 48H, Alanine Aminotransferase (ALT/SGPT) 115H, Alkaline Phosphatase 75, Ammonia 26, Total Creatine Kinase 78, Creatine Kinase MB 1.4, Creatine Kinase MB Relative Index 1.79, Troponin I < 0.02, Total Protein 7.4, Albumin 3.8, Albumin/Globulin Ratio 1.1L, Lipase 106, Thyroid Stimulating Hormone (TSH) 1.810, Salicylates Level < 1.7L, Acetaminophen Level < 2.0L, Ethyl Alcohol Level 0.008 04/04/21 15:17: Urine Color YELLOW, Urine Appearance CLOUDYH, Urine pH 9.0, Urine Specific [place] 1.012, Urine Protein 1+H, Urine Glucose (UA) 1+H, Urine Ketones 1+H, Urine Blood 1+H, Urine Nitrite NEGATIVE, Urine Bilirubin NEGATIVE, Urine Urobilinogen 0.2, Urine Leukocyte Esterase 2+H, Urine WBC (Auto) 27H, Urine RBC (Auto) 12H, Urine Hyaline Casts (Auto) 0, Urine Bacteria (Auto) 1+H, Urine Squamous Epithelial Cells 9, Urine Amorphous Sediment SMALLH, Urine Mucus (Auto) SMALL, Urine Sperm (Auto) , Urine Opiates Screen NEGATIVE, Urine Methadone Screen NEGATIVE, Urine Barbiturates Screen NEGATIVE, Urine Phencyclidine Screen NEGATIVE, Urine Amphetamines Screen NEGATIVE, Urine Benzodiazepines Screen NEGATIVE, Urine Cocaine Metabolite Screen NEGATIVE, Urine Cannabinoids Screen POSITIVEH 04/04/21 15:50: CSF Appearance CLEAR, CSF Color COLORLESS, CSF WBC (Auto) 7, CSF RBC (Auto) < 2H, CSF Glucose (Tube 1) TUBE 3, CSF Total Protein (Tube 1) TUBE 3, CSF Cell Count Tube # TUBE 1, CSF Polynuclear WBCs (%) , CSF Glucose 79H, CSF Total Protein 46H 04/04/21 16:17: Lactic Acid Level 1.6 04/04/21 17:12: POC pH (Misc Panel) 7.446, POC Base Excess (Misc Panel) -2.0, POC Saturated Percent O2 (Misc) 97, POC pO2 (Misc Panel) 87.0, POC pCO2 (Misc Panel) 32.6L, POC HCO3 (Misc Panel) 22.5, POC Total CO2 (Misc Panel) 23.0 CBC/BMP Laboratory Tests 04/04/21 14:52 Microbiology Microbiology 04/04/21 Blood Culture, Received Pending 04/04/21 Respiratory Virus Panel (PCR) (MARIO), Received Pending 04/04/21 Gram Stain - Preliminary, Resulted 04/04/21 CSF Culture, Resulted Pending 04/04/21 Urine Culture, Received Pending 04/04/21 Blood Culture, Received Pending Home Medications Scheduled Valacyclovir HCl (Valacyclovir) 500 Mg Tablet, 500 MG PO DAILY Scheduled PRN Ibuprofen (Ibuprofen) 200 Mg Capsule, 800 MG PO TID PRN for PAIN / FEVER Ondansetron (Ondansetron Odt) 4 Mg Tab.rapdis, 4 MG PO Q6H PRN for NAUSEA OR VOMITING Allergies Coded Allergies: No Known Drug Allergies (Verified Allergy, Unknown, 04/01/21) A-FIB/CHADSVASC A-FIB History Current/History of A-Fib/PAF?: No Current PO Anticoag Therapy: No Age/Risk Factor Scoring CHADSVASC: CHADSVASC Response (Comments) Value Age Risk Factor Age < 65 years old 0 Gender Risk Factor Female 1 Hx of CHF No 0 Hx of HTN No 0 Hx of Stroke/TIA/or VTE No 0 Hx of Diabetes No 0 Hx of Vascular Disease No 0 Total 1 Treatment Treatment ordered: Other Other anticoagulant ordered: Ilene Starkey MD April 04, 2021 17:58
[2021-04-04 18:41] LABS: HIV 1&2 SCREEN CENTAUR NEGATIVE (NEGATIVE)
[2021-04-04 18:58] VITALS: BP 134/71
[2021-04-04 20:00] VITALS: BP 155/88
[2021-04-04 20:28] LABS: PARTIAL THROMBOPLASTIN TIME 26.2 SECONDS (24.2-38.5); PROTHROMBIN TIME 13.4 SECONDS (12.5-14.3)
[2021-04-04] MEDS: PANTOPRAZOLE 40MG VIAL (C9113 PER 1) IV SCH (20:47)
[2021-04-04] MEDS: NS 1,000 ML IV SCH (20:48)
[2021-04-04] MEDS: KETOROLAC 30 MG/ML 1ML VIAL IV PRN (20:48)
[2021-04-04] MEDS: KCL 10MEQ/100ML SWI (KRUN) 10 MEQ in IV 1 EA IV SCH (22:15)
[2021-04-05] VITALS: BP 137/72
[2021-04-05] MEDS: KCL 10MEQ/100ML SWI (KRUN) 10 MEQ in IV 1 EA IV SCH ×5 (00:15→05:20)
[2021-04-05] MEDS: NS 1,000 ML IV SCH ×4 (01:25→22:32)
[2021-04-05] MEDS: ACETAMINOPHEN TAB 650MG DOSE (2X325MG) PO PRN (01:59)
[2021-04-05] MEDS: ACYCLOVIR 500 MG in D5W MINI-BAG PLUS 100 ML IV SCH ×3 (02:45→18:42)
[2021-04-05 04:00] VITALS: BP 139/76
[2021-04-05] MEDS: KETOROLAC 30 MG/ML 1ML VIAL IV PRN ×2 (05:20→13:17)
[2021-04-05 07:13] LABS: HEMATOCRIT 36.4 % (36.0-47.0); HEMOGLOBIN 12.6 g/dl (12.0-15.5); MEAN CORPUSCULAR HEMOGLOBIN 30.8 pg (27.0-33.0); MEAN CORPUSCULAR HGB CONC 34.6 g/dl (32.0-36.5); PLATELET COUNT, AUTOMATED 203 10^3/uL (150-450); RED BLOOD COUNT 4.09 10^6/uL (4.00-5.40); WHITE BLOOD COUNT 12.5 10^3/uL (4.0-10.0)
[2021-04-05 07:38] VITALS: BP 145/70
[2021-04-05 07:51] LABS: ALBUMIN 3.3 GM/DL (3.2-5.2); ALT/SGPT 86 U/L (12-78); BILIRUBIN,TOTAL 0.8 MG/DL (0.2-1.0); BLOOD UREA NITROGEN 12 MG/DL (7-18); CALCIUM LEVEL 8.5 MG/DL (8.5-10.1); CARBON DIOXIDE LEVEL 26 MEQ/L (21-32); CHLORIDE LEVEL 102 MEQ/L (98-107); GLOMERULAR FILTRATION RATE > 60.0 (>51); GLUCOSE, FASTING 110 MG/DL (70-100); POTASSIUM SERUM 3.9 MEQ/L (3.5-5.1); SODIUM LEVEL 134 MEQ/L (136-145); TOTAL PROTEIN 6.7 GM/DL (6.4-8.2)
[2021-04-05] MEDS: ENOXAPARIN 40MG/0.4ML SYRINGE (J1650 PER 10MG) SC SCH (09:18)
[2021-04-05 11:21] VITALS: BP 124/73
[2021-04-05] MEDS ORDERED: PROHANCE 279.3MG/ML 5ML VIAL As Ordered ONE (11:42)
[2021-04-05] MEDS ORDERED: PROHANCE 279.3MG/ML 15ML VIAL As Ordered ONE (11:43)
--- NOTE | 2021-04-05 13:08 | REP ---
INDICATION: encephallitis. COMPARISON: Comparison MRI study of the brain is dated 18 May 2007. Comparison is made with a CT study of the brain from April 04, 2021.. TECHNIQUE: Axial and sagittal imaging planes are utilized for T1 and T2-weighted scans. Sequences include spin-echo, fast spin echo, FLAIR, and diffusion weighted sequences. 16 mL of intravenous ProHance is administered axial, coronal, and sagittal post gadolinium enhanced T1 weighted scans are acquired as well. FINDINGS: No bony calvarial lesion is seen. Craniocervical junction upper cervical cord are unremarkable. There is no MR evidence of significant paranasal sinus disease. No intraorbital abnormality is appreciated. Diffusion-weighted scans show no evidence to suggest acute ischemia. No evidence of restricted diffusion. On FLAIR images, there are multifocal areas of T2 FLAIR hyperintensity in the inferior and medial aspect of each temporal lobe, the left mid temporal lobe, bilateral occipital lobes, and small foci are seen in the subcortical white matter of the parietal lobes bilaterally as well. These changes are compatible with the clinical history of encephalitis. Herpetic or other viral encephalopathy could have this appearance. Vasculitis would be in the differential. On postcontrast images, there is no abnormal intracranial contrast enhancement. There is no evidence of intracranial hemorrhage. IMPRESSION: Multifocal areas of abnormal FLAIR T2 hyperintensity most prominently affecting the occipital lobes bilaterally but also seen in the inferomedial temporal lobes on both sides, and small foci are seen in the parietal lobes. Findings are compatible with the clinical history of encephalitis, most likely viral. <Electronically signed by Mayur Woods > 04/05/21 [id number]
--- NOTE | 2021-04-05 15:09 | IPNPDOC ---
Date Seen The patient was seen on 04/05/21. Progress Note SUBJECTIVE: Abnormal MRI below, suspicious for HSV encephalitis. Multiple cultures pending. D/w ID who recommends total of 2 weeks of IV acyclovir, PICC line to be placed and f/u with them as o/p. She denies headache, blurry vision, n/v. Advanced diet. OBJECTIVE: PHYSICAL EXAMINATION: VS: Please see below CONSTITUTIONAL: Resting in bed, AAOx 3 EYES: PERRLA, EOM intact HENT, MOUTH: Normocephalic, atraumatic, dry mucous membranes NECK: SUPPLE, no JVD, no lymphadenopathy, no carotid bruit CV: Regular rate and rhythm, S1S2 normal, no murmurs/rubs/gallops RESPIRATORY: Clear to auscultation bilaterally, no rales/rhonchi/wheezes GI: no abdominal tenderness when palpated, BS positive in 4 quadrants, soft, nondistended, no rebound or guarding, no organomegaly : Deferred MUSCULOSKELETAL: Normal ROM. No cyanosis, clubbing, swelling, joint deformity, extremity edema INTEGUMENTARY: Intact, no rashes, no lesions, no erythema NEUROLOGIC: No focal deficits, confused,would not follow commands to test CN LABORATORY DATA: Please see below MICROBIOLOGY: BCx x 2 sets: pending UA +, UCx NG CSF fluid: Clear, WBC 7, glucose 79, protein 46 CSF PCR meningitis: neg Resp panel: Coronavirus Oc34 CSF culture: Pending CSF Gram stain: No cells, no organisms HIV neg Lyme pending IMAGING: MRI brain: Multifocal areas of abnormal FLAIR T2 hyperintensity most prominently affecting the occipital lobes bilaterally but also seen in the inferomedial temporal lobes on both sides, and small foci are seen in the parietal lobes. Findings are compatible with the clinical history of encephalitis, most likely viral. CT brain: No acute intracranial process CT abd/pelvis: The only significant change between today's examination on the prior examination of 04/01/2021 is the development of a moderate amount of free fluid seen in the pelvis. The etiology of this is uncertain. CT chest: 1. No evidence of a pulmonary embolus. 2. 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 recent dx of lung nodules admitted under hospitalist service for further evaluation of acute encephalopathy/delirium rule out meningitis vs other etiology. 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 vaginalis and C. trachomatis DNA done 04/01/21 (last admission) but was NEG. No new sexual partners that are known. No s/s that would warrant vaginal exam -Discussed case with Dr. Pierce. d/c ceftriaxone, c/w acyclovir x 14 days total will need PICC -C/w IVFs for another 24 hours. Acute transaminitis perhaps 2/2 to acute infection-improving -Present on last admission -Hepatitis panel done on 04/01/21 neg -CT abd/pelvis above with incr free fluid in abd? etiology uncertain -C/w IVFs, CMP daily. Avoid hepatotoxic meds Right pleural effusion, new -Saturating well on RA, no s/s of respiratory distress or infection -No documented cough, wheezing, crackles on exam -Monitor on tele Coronavirus Oc34 infection, asymptomatic -On RA, no respiratory symptoms -Supportive care if needed Bactiuria -UCx NG -Stop ceftriaxone (day 2) Lung nodules, new diagnosis -Patient noted to have small peripheral pleural based solid intrapulmonary nodules in the right upper lobe measuring 5 mm in AP diameter, seen on CT chest 04/01/21 -denies any history of smoking. -Patient instructed to follow-up with her PCP and to get repeat CT as o/p Hx of recurrent HSV on prophylactic valtrex -Last reoccurence December 2020 -No active lesions seen. -See problem #1 GI px -PPI DVt px -Enoxaparin DISPOSITION: Admitted under acute inpatient, PCU. PICC ordered, ID following with other test still pending. Plan is home at discharge. VS, I&O, 24H, Fishbone Vital Signs/I&O Vital Signs Date Time Temp Pulse Resp B/P (MAP) Pulse Ox O2 Delivery O2 Flow Rate FiO2 04/05/21 11:21 99.4 82 18 124/73 (90) 94 Room Air I&O- Last 24 Hours up to 6 AM 04/05/21 06:00 Intake Total 1460 ml Output Total 200 ml Balance 1260 ml Laboratory Data 24H LABS Laboratory Tests 2 04/04/21 14:48: POC Glucose (Misc Panel) 132H, POC Sodium (Misc Panel) 134L, POC Potassium (Misc Panel) 3.4L, POC Chloride (Misc Panel) 98, POC Total CO2 (Misc Panel) 26.0, POC Blood Urea Nitrogen (Misc Panel 12, POC Ionized Calcium (Misc Panel) 4.3L, POC Creatinine (Misc Panel) 0.4L, POC Hematocrit (Misc Panel) 42.0 04/04/21 14:52: Immature Granulocyte % (Auto) 0.5, Neutrophils (%) (Auto) 86.7H, Lymphocytes (%) (Auto) 6.9L, Monocytes (%) (Auto) 5.8, Eosinophils (%) (Auto) 0.0, Basophils (%) (Auto) 0.1, Neutrophils # (Auto) 11.6H, Lymphocytes # (Auto) 0.9L, Monocytes # (Auto) 0.8, Eosinophils # (Auto) 0.0, Basophils # (Auto) 0.0, Nucleated Red Blood Cells % (auto) 0.0, Anion Gap 8, Glomerular Filtration Rate > 60.0, Jaden cium Level 8.8, Total Bilirubin 1.0#, Direct Bilirubin 0.3H, Aspartate Amino Transf (AST/SGOT) 48H, Alanine Aminotransferase (ALT/SGPT) 115H, Alkaline Phosphatase 75, Ammonia 26, Total Creatine Kinase 78, Creatine Kinase MB 1.4, Creatine Kinase MB Relative Index 1.79, Troponin I < 0.02, Total Protein 7.4, Albumin 3.8, Albumin/Globulin Ratio 1.1L, Lipase 106, Thyroid Stimulating Hormone (TSH) 1.810, Salicylates Level < 1.7L, Acetaminophen Level < 2.0L, Ethyl Alcohol Level 0.008, HIV Antigen/Antibody Combo Qual NEGATIVE 04/04/21 15:17: Urine Color YELLOW, Urine Appearance CLOUDYH, Urine pH 9.0, Urine Specific [place] 1.012, Urine Protein 1+H, Urine Glucose (UA) 1+H, Urine Ketones 1+H, Urine Blood 1+H, Urine Nitrite NEGATIVE, Urine Bilirubin NEGATIVE, Urine Urobilinogen 0.2, Urine Leukocyte Esterase 2+H, Urine WBC (Auto) 27H, Urine RBC (Auto) 12H, Urine Hyaline Casts (Auto) 0, Urine Bacteria (Auto) 1+H, Urine Squamous Epithelial Cells 9, Urine Amorphous Sediment SMALLH, Urine Mucus (Auto) SMALL, Urine Sperm (Auto) , Urine Opiates Screen NEGATIVE, Urine Methadone Scr een NEGATIVE, Urine Barbiturates Screen NEGATIVE, Urine Phencyclidine Screen NEGATIVE, Urine Amphetamines Screen NEGATIVE, Urine Benzodiazepines Screen NEGATIVE, Urine Cocaine Metabolite Screen NEGATIVE, Urine Cannabinoids Screen POSITIVEH 04/04/21 15:50: CSF Appearance CLEAR, CSF Color COLORLESS, CSF WBC (Auto) 7, CSF RBC (Auto) < 2H, CSF Glucose (Tube 1) TUBE 3, CSF Total Protein (Tube 1) TUBE 3, CSF Cell Count Tube # TUBE 1, CSF Polynuclear WBCs (%) , CSF Glucose 79H, CSF Total Protein 46H 04/04/21 16:17: Lactic Acid Level 1.6 04/04/21 17:12: POC pH (Misc Panel) 7.446, POC Base Excess (Misc Panel) -2.0, POC Saturated Percent O2 (Misc) 97, POC pO2 (Misc Panel) 87.0, POC pCO2 (Misc Panel) 32.6L, POC HCO3 (Misc Panel) 22.5, POC Total CO2 (Misc Panel) 23.0 04/04/21 19:28: Prothrombin Time 13.4, Prothromb Time International Ratio 1.00, Activated Partial Thromboplast Time 26.2 04/05/21 07:00: Nucleated Red Blood Cells % (auto) 0.0, Anion Gap 6L, Glomerular Filtration Rate > 60.0, Calcium Level 8.5, Total Bilirubin 0.8, Aspartate Amino Transf (AST/SGOT) 29, Alanine Aminotransferase (ALT/SGPT) 86H, Alkaline Phosphatase 70, Total Protein 6.7, Albumin 3.3, Albumin/Globulin Ratio 1.0L CBC/BMP Laboratory Tests 04/04/21 14:52 04/05/21 07:00 Microbiology Microbiology 04/04/21 Blood Culture, Received Pending 04/04/21 Respiratory Virus Panel (PCR) (MARIO) - Final, Complete Coronavirus Oc43 04/04/21 - Final, Complete 04/04/21 Gram Stain - Final, Resulted 04/04/21 CSF Culture, Resulted Pending 04/04/21 Urine Culture - Final, Complete 04/04/21 Blood Culture, Received Pending Ilene Han MD April 05, 2021 15:09
[2021-04-05 15:48] VITALS: BP 155/79
[2021-04-05] MEDS ORDERED: cefTRIAXone SOD 2 GM in D5W MINI-BAG PLUS 50 ML IV SCH (16:00)
--- NOTE | 2021-04-05 19:49 | CR.PDOC ---
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 Of note, she was hospitalized at [facility] from 04/01/21 to 04/02/21 for intractable nausea and vomiting and was discharged home on Zofran. Per chart, that morning she was found to be confused, not recognizing her family members and complaining of severe frontal headache (worst in her life) which prompted her to bring her to the ED. In the ED, she was found to be febrile, confused and with positive drug screen for cannabinoids. An LP was performed in the ED which showed only slightly elevated protein and elevated glucose, unconcerning for acute meningitis. Her urine was concerning for UTI so she was started on Rocephin, as well as Acyclovir for empiric treatment of HSV encephalitis. This morning, the patient states that she feels much better but is quite tired. She states she feels very "cold" but her body feels quite warm. She recalls coming to the ED yesterday but is not entirely sure why her brought her, stating she thinks she was sick and had a headache. She has no memory of the lumbar puncture in the ED. She denies any feeling of confusion or cloudiness of her thoughts, nor any issue concentrating. She denies any fevers, chills, but does report intermittent nausea. She also denies any abdominal pain or diarrhea. The patient states that she has been taking her daily Valtrex prescribed to her by dermatology (except for the days she was vomiting), but expresses concern about taking it for a long period of time. She has only ever had breakouts of herpes on her buttock. She denies any recent outbreaks. ALLERGIES: Please see below. HOME MEDICATIONS: Please see below. PAST MEDICAL HISTORY: UTI/hematuria evaluated for interstitial cystitis( no actual diagnosis). Endometriosis. Arthritis of hand, right, degenerative. Carpal tunnel syndrome of right wrist. Vitamin d deficiency. Recurrent HSV (buttock), on Valtrex History of lung nodules PAST SURGICAL HISTORY: C section 1987,1991 tubal ligation LAVH fibroid uterus 2005 cystoscopy 2009 colonoscopy - diverticulosis, internal hemorrhoids - [facility] (repeat 5-10yrs) 2010 laparoscopy for infertility FAMILY HISTORY: Father: unknown, Unknown to pt Mother: alive 73 yrs, HTN, DM, [place] with bypass, diagnosed with Hypertension, Unspecified heart disease, Diabetes Daughter(s): HTN -1 daughter onset at 16 Maternal Grand Father: 88 yrs, cancer, colon 3 brother(s) , 1 sister(s) - healthy. 2daughter(s) . no breast ovary cancer PT denies any family history of skin cancers and pancreatic cancer. 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 GENERAL APPEARANCE: very thin, jones female appearing stated age, laying flat in bed, in no acute distress, answering most questions appropriately HEENT: EOMI, PERRL, sclerae non-icteric RESPIRATORY: clear to auscultation with no adventitious breath sounds appr eciated CARDIOVASCULAR: Regular rate and rhythm with no obvious murmurs/rubs/gallops, normal S1/S2 ABDOMEN: Very thin, +BS, no organomegaly, no masses, nontender to palpation, soft EXTREMITIES: No clubbing/cyanosis/edema NEUROLOGICAL: No obvious focal deficits PSYCHIATRIC: AAOx3, flat affect, giving short answers, seems somewhat confused but not overtly, answers most questions appropriately LABORATORY DATA: Please see below. IMAGING: MRI BRAIN 04/05/21: FINDINGS: No bony calvarial lesion is seen. Craniocervical junction upper cervical cord are unremarkable. There is no MR evidence of significant paranasal sinus disease. No intraorbital abnormality is appreciated. Diffusion-weighted scans show no evidence to suggest acute ischemia. No evidence of restricted diffusion. On FLAIR images, there are multifocal areas of T2 FLAIR hyperintensity in the inferior and medial aspect of each temporal lobe, the left mid temporal lobe, bilateral occipital lobes, and small foci are seen in the subcortical white matter of the parietal lobes bilaterally as well. These changes are compatible with the clinical history of encephalitis. Herpetic or other viral encephalopathy could have this appearance. Vasculitis would be in the differential. On postcontrast images, there is no abnormal intracranial contrast enhancement. There is no evidence of intracranial hemorrhage. IMPRESSION: Multifocal areas of abnormal FLAIR T2 hyperintensity most prominently affecting the occipital lobes bilaterally but also seen in the inferomedial temporal lobes on both sides, and small foci are seen in the parietal lobes. Findings are compatible with the clinical history of encephalitis, most likely viral. ASSESSMENT: This is a 55 YO F with history of recurrent HSV rashes who presents with five days of nausea, vomiting, headaches and confusion found to have encephalitis likely secondary to HSV PLAN: 1. Viral encephalitis, likely 2/2 HSV: -CSF<2 RBC, Glu 79, Total protein 46 -HSV I and II IgG pending -Continue IV Acyclovir (day 2) -Tylenol as needed for fevers -Continue neurologic checks for improvement in encephalitis 2. Coronavirus Oc43 on Respiratory panel -Continue supportive care, precautions Rocephin stopped as patient is asymptomatic with no dysuria symptoms Vital Signs/I&O Vital Signs Date Time Temp Pulse Resp B/P (MAP) Pulse Ox O2 Delivery O2 Flow Rate FiO2 04/05/21 15:48 97.8 73 18 155/79 (104) 94 Room Air I&O- Last 24 Hours up to 6 AM 04/05/21 06:00 Intake Total 1460 ml Output Total 200 ml Balance 1260 ml Laboratory Data Labs 24H Laboratory Tests 2 04/04/21 19:28: Prothrombin Time 13.4, Prothromb Time International Ratio 1.00, Activated Partial Thromboplast Time 26.2 04/05/21 07:00: Nucleated Red Blood Cells % (auto) 0.0, Anion Gap 6L, Glomerular Filtration Rate > 60.0, Calcium Level 8.5, Total Bilirubin 0.8, Aspartate Amino Transf (AST/SGOT) 29, Alanine Aminotransferase (ALT/SGPT) 86H, Alkaline Phosphatase 70, Total Protein 6.7, Albumin 3.3, Albumin/Globulin Ratio 1.0L 04/05/21 14:59: CBC/BMP Laboratory Tests 04/05/21 07:00 Microbiology Microbiology 04/04/21 Blood Culture - Preliminary, Resulted No growth after 24 hours . All specim... 04/04/21 Respiratory Virus Panel (PCR) ([facility]) - Final, Complete Coronavirus Oc43 04/04/21 - Final, Complete 04/04/21 Gram Stain - Final, Resulted 04/04/21 CSF Culture, Resulted Pending 04/04/21 Urine Culture - Final, Complete 04/04/21 Blood Culture - Preliminary, Resulted No growth after 24 hours . All specim... Allergies Coded Allergies: No Known Drug Allergies (Verified Allergy, Unknown, 04/01/21) Home Medications Scheduled Valacyclovir HCl (Valacyclovir) 500 Mg Tablet, 500 MG PO DAILY, (Reported) Scheduled PRN Ibuprofen (Ibuprofen) 200 Mg Capsule, 800 MG PO TID PRN for PAIN / FEVER, (Reported) Ondansetron (Ondansetron Odt) 4 Mg Tab.rapdis, 4 MG PO Q6H PRN for NAUSEA OR VOMITING, (Reported) GME ATTESTATION GME ATTESTATION My faculty preceptor for this patient encounter was physically present during the encounter and was fully available. All aspects of the patient interview, examination, medical decision making process, and medical care plan development were reviewed and approved by the faculty preceptor. The faculty preceptor is aware and concurs with the plan as stated in the body of this note and will attest to such by his/her cosignature. KATELIN MEEHAN MD April 05, 2021 19:49
[2021-04-05 20:00] VITALS: BP 130/62
--- NOTE | 2021-04-05 20:23 | ECGEPIP ---
[facility] - ED Test Date: 2021-04-04 Pat Name: YEMI COELHO Department: Room: - Gender: Female Supervisor [employer]: DONITA : 1965 Requested By: Sarah Morelos Order Number: [id number] Reading MD: Shreya Hinkle Measurements Intervals Milnor Rate: 89 P: 80 AR: 116 QRS: 85 QRSD: 80 T: 80 QT: 374 QTc: 455 Interpretive Statements Sinus rhythm with premature atrial complexes irbbb increased rate 04/01/21 Electronically Signed on 04-05-2021 20:23:43 EDT by Shreya Hinkle
[2021-04-05] MEDS: PANTOPRAZOLE 40MG VIAL (C9113 PER 1) IV SCH (21:08)
[2021-04-06] VITALS (7 sets, daily range): BP systolic 120–144; BP diastolic 67–75
[2021-04-06] MEDS: ACETAMINOPHEN TAB 650MG DOSE (2X325MG) PO PRN ×3 (00:27→15:36)
[2021-04-06] MEDS: ACYCLOVIR 500 MG in D5W MINI-BAG PLUS 100 ML IV SCH ×3 (02:09→17:38)
[2021-04-06 05:52] LABS: HEMATOCRIT 35.1 % (36.0-47.0); HEMOGLOBIN 12.2 g/dl (12.0-15.5); MEAN CORPUSCULAR HEMOGLOBIN 31.2 pg (27.0-33.0); MEAN CORPUSCULAR HGB CONC 34.8 g/dl (32.0-36.5); MEAN CORPUSCULAR VOLUME 89.8 fl (80.0-96.0); PLATELET COUNT, AUTOMATED 207 10^3/uL (150-450); RED BLOOD COUNT 3.91 10^6/uL (4.00-5.40); WHITE BLOOD COUNT 9.1 10^3/uL (4.0-10.0)
[2021-04-06 06:24] LABS: ALT/SGPT 73 U/L (12-78); BILIRUBIN,TOTAL 0.6 MG/DL (0.2-1.0); BLOOD UREA NITROGEN 12 MG/DL (7-18); CARBON DIOXIDE LEVEL 28 MEQ/L (21-32); CHLORIDE LEVEL 103 MEQ/L (98-107); CREATININE FOR GFR 0.43 MG/DL (0.55-1.30); GLOMERULAR FILTRATION RATE > 60.0 (>51); GLUCOSE, FASTING 105 MG/DL (70-100); POTASSIUM SERUM 3.6 MEQ/L (3.5-5.1); SODIUM LEVEL 135 MEQ/L (136-145)
[2021-04-06] MEDS: NS 1,000 ML IV SCH (06:49)
[2021-04-06] MEDS: KETOROLAC 30 MG/ML 1ML VIAL IV PRN ×2 (09:11→15:37)
[2021-04-06] MEDS: ENOXAPARIN 40MG/0.4ML SYRINGE (J1650 PER 10MG) SC SCH (09:11)
--- NOTE | 2021-04-06 17:20 | IPNPDOC ---
Date Seen The patient was seen on 04/06/21. Progress Note SUBJECTIVE: Complains of same headache, unchanged in intensity or location. Encouraging Po intake as IVFs stopped. Unable to have PICC placed before weekend. She denies new changes blurry vision, n/v. OBJECTIVE: PHYSICAL EXAMINATION: VS: Please see below CONSTITUTIONAL: Resting in bed, AAOx 3 EYES: PERRLA, EOM intact, no eye lesions seen on exam HENT, MOUTH: Normocephalic, atraumatic, dry mucous membranes NECK: SUPPLE, no JVD, no lymphadenopathy, no carotid bruit CV: Regular rate and rhythm, S1S2 normal, no murmurs/rubs/gallops RESPIRATORY: Clear to auscultation bilaterally, no rales/rhonchi/wheezes GI: no abdominal tenderness when palpated, BS positive in 4 quadrants, soft, no ndistended, no rebound or guarding, no organomegaly : Deferred MUSCULOSKELETAL: Normal ROM. No cyanosis, clubbing, swelling, joint deformity, extremity edema INTEGUMENTARY: Intact, no rashes, no lesions, no erythema NEUROLOGIC: No focal deficits, confused,would not follow commands to test CN LABORATORY DATA: Please see below MICROBIOLOGY: BCx x 2 sets: pending UA +, UCx NG CSF fluid: Clear, WBC 7, glucose 79, protein 46 CSF PCR meningitis: neg Resp panel: Coronavirus Oc34 CSF culture: Pending CSF Gram stain: No cells, no organisms HIV neg Lyme pending IMAGING: MRI brain: Multifocal areas of abnormal FLAIR T2 hyperintensity most prominently affecting the occipital lobes bilaterally but also seen in the inferomedial temporal lobes on both sides, and small foci are seen in the parietal lobes. Findings are compatible with the clinical history of encephalitis, most likely viral. CT brain: No acute intracranial process CT abd/pelvis: The only significant change between today's examination on the prior examination of 04/01/2021 is the development of a moderate amount of free fluid seen in the pelvis. The etiology of this is uncertain. CT chest: 1. No evidence of a pulmonary embolus. 2. 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 recent dx of lung nodules admitted under hospitalist service for further evaluation of acute encephalopathy/delirium rule out meningitis vs other etiology. PLAN: Acute encephalopathy likely 2/2 to HSV encephalitis -Hx of recurrent HSV on prophylactic valtrex at home -WBC wnl today, remains AAOx 3 but with same headache, unchanged in location -MRI above, findings suspicious for HSV encephalitis -Please see micro above, no active HSV lesions currently on body -Unknown as to why gonnorrhea, T. vaginalis and C. trachomatis DNA done 04/01/21 (last admission) but was NEG. No new sexual partners that are known. No s/s that would warrant vaginal exam -Discussed case with Dr. Pierce. C/w acyclovir x 14 days total will need PICC after weekend -D/c IVFs, encourage Po intake Acute transaminitis perhaps 2/2 to acute infection vs. medication induced- resolved. -Present on last admission -Hepatitis panel done on 04/01/21 neg -CT abd/pelvis above with incr free fluid in abd? etiology uncertain -CMP daily, Avoid hepatotoxic meds Right pleural effusion, new -Saturating well on RA, no s/s of respiratory distress or infection -No documented cough, wheezing, crackles on exam -Monitor on tele Coronavirus Oc34 infection, asymptomatic -On RA, no respiratory symptoms -Supportive care if needed Bactiuria -UCx NG -Stopped ceftriaxone after 2 days Lung nodules, new diagnosis -Patient noted to have small peripheral pleural based solid intrapulmonary nodules in the right upper lobe measuring 5 mm in AP diameter, seen on CT chest 04/01/21 -denies any history of smoking. -Patient instructed to follow-up with her PCP and to get repeat CT as o/p Hx of recurrent HSV on prophylactic valtrex -Last reoccurence December 2020 -No active lesions seen. -See problem #1 GI px -PPI DVt px -Enoxaparin DISPOSITION: Admitted under acute inpatient, PCU. PICC ordered and to be placed after weekend, ID following with other test still pending. Plan is home at discharge with IV antivirals to complete 14 days, f/u with ID o/p . VS, I&O, 24H, Fishbone Vital Signs/I&O Vital Signs Date Time Temp Pulse Resp B/P (MAP) Pulse Ox O2 Delivery O2 Flow Rate FiO2 04/06/21 14:00 98.7 69 16 137/72 (93) 96 Room Air I&O- Last 24 Hours up to 6 AM 04/06/21 06:00 Intake Total 1195 ml Output Total 250 ml Balance 945 ml Laboratory Data 24H LABS Laboratory Tests 2 04/06/21 05:27: Nucleated Red Blood Cells % (auto) 0.0, Anion Gap 4L, Glomerular Filtration Rate > 60.0, Calcium Level 8.0L, Total Bilirubin 0.6, Aspartate Amino Transf (AST/SGOT) 25, Alanine Aminotransferase (ALT/SGPT) 73, Alkaline Phosphatase 69, Total Protein 6.0L, Albumin 3.0L, Albumin/Globulin Ratio 1.0L CBC/BMP Laboratory Tests 04/06/21 05:27 Microbiology Microbiology 04/04/21 Blood Culture - Preliminary, Resulted No Growth after 48 hours. All Specime... 04/04/21 Respiratory Virus Panel (PCR) ([facility]) - Final, Complete Coronavirus Oc43 04/04/21 - Final, Complete 04/04/21 Gram Stain - Final, Complete 04/04/21 CSF Culture - Final, Complete 04/04/21 Urine Culture - Final, Complete 04/04/21 Blood Culture - Preliminary, Resulted No Growth after 48 hours. All Specime... Ilene Han MD April 06, 2021 17:20
[2021-04-06 18:07] LABS: Lyme Disease IgG/IgM Antibodie <0.91 ISR (0.00-0.90); Lyme Disease IgM Ab Quantitati <0.80 index (0.00-0.79)
[2021-04-06] MEDS: PANTOPRAZOLE 40MG VIAL (C9113 PER 1) IV SCH (21:18)
[2021-04-07] MEDS: ACYCLOVIR 500 MG in D5W MINI-BAG PLUS 100 ML IV SCH ×3 (01:29→17:13)
[2021-04-07] MEDS: KETOROLAC 30 MG/ML 1ML VIAL IV PRN ×2 (01:29→15:04)
[2021-04-07] MEDS: ACETAMINOPHEN TAB 650MG DOSE (2X325MG) PO PRN ×3 (01:29→17:14)
[2021-04-07 06:00] VITALS: BP 132/87
[2021-04-07 06:36] LABS: HEMOGLOBIN 13.1 g/dl (12.0-15.5); MEAN CORPUSCULAR HEMOGLOBIN 30.8 pg (27.0-33.0); MEAN CORPUSCULAR HGB CONC 34.5 g/dl (32.0-36.5); MEAN CORPUSCULAR VOLUME 89.4 fl (80.0-96.0); PLATELET COUNT, AUTOMATED 225 10^3/uL (150-450); RED BLOOD COUNT 4.25 10^6/uL (4.00-5.40); WHITE BLOOD COUNT 9.1 10^3/uL (4.0-10.0)
[2021-04-07 06:55] LABS: ALBUMIN 3.4 GM/DL (3.2-5.2); ALT/SGPT 65 U/L (12-78); BILIRUBIN,TOTAL 0.7 MG/DL (0.2-1.0); BLOOD UREA NITROGEN 11 MG/DL (7-18); CALCIUM LEVEL 8.9 MG/DL (8.5-10.1); CARBON DIOXIDE LEVEL 28 MEQ/L (21-32); CHLORIDE LEVEL 99 MEQ/L (98-107); GLOMERULAR FILTRATION RATE > 60.0 (>51); GLUCOSE, FASTING 97 MG/DL (70-100); POTASSIUM SERUM 3.9 MEQ/L (3.5-5.1); SODIUM LEVEL 134 MEQ/L (136-145); TOTAL PROTEIN 6.5 GM/DL (6.4-8.2)
[2021-04-07] MEDS: ENOXAPARIN 40MG/0.4ML SYRINGE (J1650 PER 10MG) SC SCH (10:49)
[2021-04-07 14:00] VITALS: BP 134/87
--- NOTE | 2021-04-07 16:17 | IPNPDOC ---
Date Seen The patient was seen on 04/07/21. Progress Note SUBJECTIVE: Headache persists, has spots of color in vision at times. On exam, no new lesions or findings. PICC to be placed 04/08/21, to discuss further plans with ID. OBJECTIVE: PHYSICAL EXAMINATION: VS: Please see below CONSTITUTIONAL: Resting in bed, AAOx 3 EYES: PERRLA, EOM intact, no eye lesions seen on exam HENT, MOUTH: Normocephalic, atraumatic, dry mucous membranes NECK: SUPPLE, no JVD, no lymphadenopathy, no carotid bruit CV: Regular rate and rhythm, S1S2 normal, no murmurs/rubs/gallops RESPIRATORY: Clear to auscultation bilaterally, no rales/rhonchi/wheezes GI: no abdominal tenderness when palpated, BS positive in 4 quadrants, soft, nondistended, no rebound or guarding, no organomegaly : Deferred MUSCULOSKELETAL: Normal ROM. No cyanosis, clubbing, swelling, joint deformity, extremity edema INTEGUMENTARY: Intact, no rashes, no lesions, no erythema NEUROLOGIC: No focal deficits, CN 2-12 intact PSYCH: mood and affect appropriate LABORATORY DATA: Please see below MICROBIOLOGY: BCx x 2 sets: NG UA +, UCx NG CSF fluid: Clear, WBC 7, glucose 79, protein 46 CSF PCR meningitis: neg Resp panel: Coronavirus Oc34 CSF culture: Neg CSF Gram stain: No cells, no organisms HIV neg Lyme neg IMAGING: MRI brain: Multifocal areas of abnormal FLAIR T2 hyperintensity most prominently affecting the occipital lobes bilaterally but also seen in the inferomedial temporal lobes on both sides, and small foci are seen in the parietal lobes. Findings are compatible with the clinical history of encephalitis, most likely viral. CT brain: No acute intracranial process CT abd/pelvis: The only significant change between today's examination on the prior examination of 04/01/2021 is the development of a moderate amount of free fluid seen in the pelvis. The etiology of this is uncertain. CT chest: 1. No evidence of a pulmonary embolus. 2. 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 recent dx of lung nodules admitted under hospitalist service for further evaluation of acute encephalopathy/delirium rule out meningitis vs other etiology. PLAN: Acute encephalopathy likely 2/2 to HSV encephalitis ? -Hx of recurrent HSV on prophylactic valtrex at home -WBC wnl today, remains AAOx 3 but with same headache, unchanged in location -MRI above, findings suspicious for HSV encephalitis -Please see micro above, no active HSV lesions currently on body -Discussed case with Dr. Pierce. C/w acyclovir x 14 days total will need PICC after weekend -Will tb with ophthalmology in the AM if possible to discuss current sporatic vision changes and see recommendations -Precautions in place Right pleural effusion, new -Saturating well on RA, no s/s of respiratory distress or infection -No documented cough, wheezing, crackles on exam -Monitor on tele Coronavirus Oc34 infection, asymptomatic -On RA, no respiratory symptoms -Supportive care if needed Bactiuria -UCx NG -Stopped ceftriaxone after 2 days Lung nodules, new diagnosis -Patient noted to have small peripheral pleural based solid intrapulmonary nodules in the right upper lobe measuring 5 mm in AP diameter, seen on CT chest 04/01/21 -denies any history of smoking. -Patient instructed to follow-up with her PCP and to get repeat CT as o/p Hx of recurrent HSV has been on prophylactic valtrex -Last reoccurrence December 2020 -No active lesions seen. -See problem #1 GI px -PPI DVt px -Enoxaparin Resolved issues: Acute transaminitis perhaps 2/2 to acute infection vs. medication induced (been on valtrex at home) DISPOSITION: Admitted under acute inpatient, PCU. PICC ordered and to be placed after weekend, ID following. Plan is home at discharge with IV antivirals to complete 14 days, f/u with ID o/p . [facility]O Vital Signs Date Time Temp Pulse Resp B/P (MAP) Pulse Ox O2 Delivery O2 Flow Rate FiO2 04/07/21 06:00 98.9 76 17 132/87 (102) 92 Room Air I&O- Last 24 Hours up to 6 AM 04/07/21 06:00 Intake Total 3000 ml Output Total 1100 ml Balance 1900 ml Laboratory Data 24H LABS Laboratory Tests 2 04/07/21 05:44: Nucleated Red Blood Cells % (auto) 0.0, Anion Gap 7L, Glomerular Filtration Rate > 60.0, Calcium Level 8.9, Total Bilirubin 0.7, Aspartate Amino Transf (AST/SGO T) 18, Alanine Aminotransferase (ALT/SGPT) 65, Alkaline Phosphatase 71, Total Protein 6.5, Albumin 3.4, Albumin/Globulin Ratio 1.1L CBC/BMP Laboratory Tests 04/07/21 05:44 Microbiology Microbiology 04/04/21 Blood Culture - Preliminary, Resulted No Growth after 48 hours. All Specime... 04/04/21 Respiratory Virus Panel (PCR) ([facility]) - Final, Complete Coronavirus Oc43 04/04/21 - Final, Complete 04/04/21 Gram Stain - Final, Complete 04/04/21 CSF Culture - Final, Complete 04/04/21 Urine Culture - Final, Complete 04/04/21 Blood Culture - Preliminary, Resulted No Growth after 72 hours. All specime... Ilene Han MD April 07, 2021 16:17
[2021-04-07] MEDS: PANTOPRAZOLE 40MG VIAL (C9113 PER 1) IV SCH (20:36)
[2021-04-07 22:00] VITALS: BP 112/67
[2021-04-08] MEDS: ACETAMINOPHEN TAB 650MG DOSE (2X325MG) PO PRN ×3 (00:23→17:49)
[2021-04-08] MEDS: ACYCLOVIR 500 MG in D5W MINI-BAG PLUS 100 ML IV SCH ×3 (02:19→17:56)
[2021-04-08 06:00] VITALS: BP 144/84
[2021-04-08 07:42] LABS: HEMATOCRIT 40.1 % (36.0-47.0); HEMOGLOBIN 13.7 g/dl (12.0-15.5); MEAN CORPUSCULAR HEMOGLOBIN 30.6 pg (27.0-33.0); MEAN CORPUSCULAR HGB CONC 34.2 g/dl (32.0-36.5); MEAN CORPUSCULAR VOLUME 89.7 fl (80.0-96.0); PLATELET COUNT, AUTOMATED 270 10^3/uL (150-450); RED BLOOD COUNT 4.47 10^6/uL (4.00-5.40); WHITE BLOOD COUNT 9.3 10^3/uL (4.0-10.0)
[2021-04-08 08:08] LABS: ALBUMIN 3.3 GM/DL (3.2-5.2); ALT/SGPT 57 U/L (12-78); BILIRUBIN,TOTAL 0.5 MG/DL (0.2-1.0); BLOOD UREA NITROGEN 13 MG/DL (7-18); CALCIUM LEVEL 8.3 MG/DL (8.5-10.1); CARBON DIOXIDE LEVEL 30 MEQ/L (21-32); CHLORIDE LEVEL 99 MEQ/L (98-107); CREATININE FOR GFR 0.52 MG/DL (0.55-1.30); GLOMERULAR FILTRATION RATE > 60.0 (>51); GLUCOSE, FASTING 108 MG/DL (70-100); POTASSIUM SERUM 4.2 MEQ/L (3.5-5.1); SODIUM LEVEL 135 MEQ/L (136-145); TOTAL PROTEIN 6.5 GM/DL (6.4-8.2)
[2021-04-08] MEDS ORDERED: [UNRECOGNIZED DRUG - CODE] IV (08:41)
[2021-04-08] MEDS: ENOXAPARIN 40MG/0.4ML SYRINGE (J1650 PER 10MG) SC SCH (08:45)
[2021-04-08] MEDS: KETOROLAC 30 MG/ML 1ML VIAL IV PRN ×2 (10:32→20:15)
[2021-04-08] MEDS ORDERED: LIDOCAINE 1% MDV 20ML VIAL As Ordered ONE (11:09)
[2021-04-08] MEDS ORDERED: SODIUM CHLORIDE 0.9% INJ 10 ML SYR IV PRN (12:25)
[2021-04-08 14:00] VITALS: BP 134/83
--- NOTE | 2021-04-08 15:00 | REP ---
PROCEDURE NAME: MIDLINE INSERTION W/ SITERITE CLINICAL INFORMATION: needing IV antivirals at home. COMPARISON: None. PROCEDURE DESCRIPTION: The procedure was performed by BASIA Menard, under the direct supervision of Dr. Woods. The risks and benefits of the procedure were explained to the patient and an informed consent was obtained both verbally and written. Directly prior to the start of the procedure a formal time-out was completed in the procedure room. The left basilic vein was localized using ultrasound guidance. The skin was prepped and draped in sterile fashion. One mL of 1% lidocaine 10 mg/mL was used as a local anesthetic. Using ultrasound guidance the left basilic vein was cannulated, and a 0.018 guidewire was inserted. The needle was removed and a 4.5 Chinese dilator and peel-away sheath was inserted over the guidewire. A 4.5 Chinese single lumen catheter was cut to a length of 9 cm. The dilator was removed and the catheter was inserted over the guidewire. The peel-away sheath was removed and the catheter was flushed with heparinized saline as per hospital protocol. The catheter was affixed to the skin and a sterile dressing was applied. The patient tolerated the procedure well and there were no immediate complications. CONCLUSION: Mid line insertion into the left basilic vein. <Electronically signed by Radha Rangel > 04/08/21 [id number] <Electronically signed by Mayur Woods > 04/08/21 [id number]
[2021-04-08 15:14] LABS: HSV TYPE II IgG SPECIFIC >23.60 index (0.00-0.90)
[2021-04-08] MEDS: SODIUM CHLORIDE 0.9% INJ 10 ML SYR IV SCH (17:48)
--- NOTE | 2021-04-08 17:50 | IPNPDOC ---
Date Seen The patient was seen on 04/08/21. Progress Note INFECTIOUS DISEASE PROGRESS NOTE: SUBJECTIVE: Le was seen and examined at the bedside this afternoon. She is complaining of ongoing frontal headache and it hurts when she moves her eyes. She randomly sees colorful floating spots in her visual davis but denies any visual field loss or blurry vision. Her is present in the room this afternoon and states that she has moments of confusion and not making sense but overall her mental status has improved. No other issues reported. OBJECTIVE PHYSICAL EXAMINATION: VITAL SIGNS: Please see below. GENERAL APPEARANCE: very thin, jones female appearing stated age, laying flat in bed, in no acute distress HEENT: EOMI, PERRL, sclerae non-icteric RESPIRATORY: clear to auscultation with no adventitious breath sounds appreciated CARDIOVASCULAR: Regular rate and rhythm with no obvious murmurs/rubs/gallops, normal S1/S2 ABDOMEN: Very thin, +BS, no organomegaly, no masses, nontender to palpation, soft EXTREMITIES: No clubbing/cyanosis/edema NEUROLOGICAL: No obvious focal deficits PSYCHIATRIC: AAOx3, normal mood/affect LABORATORY DATA: Please see below. ASSESSMENT: This is a 55 YO F with history of recurrent HSV rashes who presents with five days of nausea, vomiting, headaches and confusion found to have encephalitis likely secondary to HSV PLAN: 1. Viral encephalitis, likely 2/2 HSV: -CSF<2 RBC, Glu 79, Total protein 46 -HSV I and II IgG positive -Continue IV Acyclovir (day 03/29) via midline, PICC will be placed tomorrow -Tylenol as needed for fevers -Continue neurologic checks for improvement in encephalitis 2. Coronavirus Oc43 on Respiratory panel -Continue supportive care, precautions Rocephin stopped as patient is asymptomatic with no dysuria symptoms VS, I&O, 24H, Fishbone Vital Signs/I&O Vital Signs Date Time Temp Pulse Resp B/P (MAP) Pulse Ox O2 Delivery O2 Flow Rate FiO2 04/08/21 14:00 98.5 74 12 134/83 (100) 97 Room Air I&O- Last 24 Hours up to 6 AM 04/08/21 06:00 Intake Total 1510 ml Output Total 0 ml Balance 1510 ml Laboratory Data 24H LABS Laboratory Tests 2 04/08/21 07:03: Nucleated Red Blood Cells % (auto) 0.0, Anion Gap 6L, Glomerular Filtration Rate > 60.0, Calcium Level 8.3L, Total Bilirubin 0.5, Aspartate Amino Transf (AST/SGOT) 15, Alanine Aminotransferase (ALT/SGPT) 57, Alkaline Phosphatase 70, Total Protein 6.5, Albumin 3.3, Albumin/Globulin Ratio 1.0L CBC/BMP Laboratory Tests 04/08/21 07:03 Microbiology Microbiology 04/04/21 Blood Culture - Preliminary, Resulted No Growth after 72 hours. All specime... 04/04/21 Respiratory Virus Panel (PCR) ([facility]) - Final, Complete Coronavirus Oc43 04/04/21 - Final, Complete 04/04/21 Gram Stain - Final, Complete 04/04/21 CSF Culture - Final, Complete 04/04/21 Urine Culture - Final, Complete 04/04/21 Blood Culture - Preliminary, Resulted No Growth after 72 hours. All specime... GME ATTESTATION GME ATTESTATION My faculty preceptor for this patient encounter was physically present during the encounter and was fully available. All aspects of the patient interview, examination, medical decision making process, and medical care plan development were reviewed and approved by the faculty preceptor. The faculty preceptor is aware and concurs with the plan as stated in the body of this note and will attest to such by his/her cosignature. KATELIN MEEHAN MD April 08, 2021 17:50
[2021-04-08] MEDS: PANTOPRAZOLE 40MG VIAL (C9113 PER 1) IV SCH (20:15)
--- NOTE | 2021-04-08 20:24 | IPNPDOC ---
Date Seen The patient was seen on 04/08/21. Progress Note SUBJECTIVE: Headache persists, has spots of color in vision at times that continue. Midline placed today but per infusion nurse, needed PICC. To exchange catheters in the AM. OBJECTIVE: PHYSICAL EXAMINATION: VS: Please see below CONSTITUTIONAL: Resting in bed, AAOx 3 but appears more lethargic today. EYES: PERRLA, EOM intact, no eye lesions seen on exam HENT, MOUTH: Normocephalic, atraumatic, dry mucous membranes NECK: SUPPLE, no JVD, no lymphadenopathy, no carotid bruit CV: Regular rate and rhythm, S1S2 normal, no murmurs/rubs/gallops RESPIRATORY: Clear to auscultation bilaterally, no rales/rhonchi/wheezes GI: no abdominal tenderness when palpated, BS positive in 4 quadrants, soft, nondistended, no rebound or guarding, no organomegaly : Deferred MUSCULOSKELETAL: Midline in place. Normal ROM. No cyanosis, clubbing, swelling, joint deformity, extremity edema INTEGUMENTARY: Intact, no rashes, no lesions, no erythema NEUROLOGIC: No focal deficits, CN 2-12 intact PSYCH: mood and affect appropriate LABORATORY DATA: Please see below MICROBIOLOGY: BCx x 2 sets: NG UA +, UCx NG CSF fluid: Clear, WBC 7, glucose 79, protein 46 CSF PCR meningitis: neg Resp panel: Coronavirus Oc34 CSF culture: Neg CSF Gram stain: No cells, no organisms HIV neg Lyme neg West Nile IgG and IgM testing ordered IMAGING: MRI brain: Multifocal areas of abnormal FLAIR T2 hyperintensity most prominently affecting the occipital lobes bilaterally but also seen in the inferomedial temporal lobes on both sides, and small foci are seen in the parietal lobes. Findings are compatible with the clinical history of encephalitis, most likely viral. CT brain: No acute intracranial process CT abd/pelvis: The only significant change between today's examination on the prior examination of 04/01/2021 is the development of a moderate amount of free fluid seen in the pelvis. The etiology of this is uncertain. CT chest: 1. No evidence of a pulmonary embolus. 2. 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 recent dx of lung nodules admitted under hospitalist service for further evaluation of acute encephalopathy/delirium rule out meningitis vs other etiology. 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 Pierce. C/w acyclovir x 14 days total will need PICC -Patient to follow up with Dr. Pierce as o/p after discharge. -Precautions in place Right pleural effusion, new -Saturating well on RA, no s/s of respiratory distress or infection -No documented cough, wheezing, crackles on exam -Monitor on tele Coronavirus Oc34 infection, asymptomatic -On RA, no respiratory symptoms -Supportive care if needed Bactiuria -UCx NG -Stopped ceftriaxone after 2 days Lung nodules, new diagnosis -Patient noted to have small peripheral pleural based solid intrapulmonary nodules in the right upper lobe measuring 5 mm in AP diameter, seen on CT chest 04/01/21 -Repeat CT chest above does not mention nodules. -denies any history of smoking. -Patient instructed to follow-up with her PCP as may need repeat testing Hx of recurrent HSV has been on prophylactic valtrex -Last reoccurrence December 2020 -No active lesions seen. -See problem #1 GI px -PPI DVt px -Enoxaparin Resolved issues: Acute transaminitis perhaps 2/2 to acute infection vs. medication induced (been on valtrex at home) DISPOSITION: Admitted under acute inpatient. PICC being placed tomorrow, ID following. Plan is home at discharge with IV antivirals to complete 14 days, f/u with ID o/p . VS, I&O, 24H, Fishbone Vital Signs/I&O Vital Signs Date Time Temp Pulse Resp B/P (MAP) Pulse Ox O2 Delivery O2 Flow Rate FiO2 04/08/21 14:00 98.5 74 12 134/83 (100) 97 Room Air I&O- Last 24 Hours up to 6 AM 04/08/21 05:59 Intake Total 1515 ml Output Total 300 ml Balance 1215 ml Laboratory Data 24H LABS Laboratory Tests 2 04/08/21 07:03: Nucleated Red Blood Cells % (auto) 0.0, Anion Gap 6L, Glomerular Filtration Rate > 60.0, Calcium Level 8.3L, Total Bilirubin 0.5, Aspartate Amino Transf (AST/SGOT) 15, Alanine Aminotransferase (ALT/SGPT) 57, Alkaline Phosphatase 70, Total Protein 6.5, Albumin 3.3, Albumin/Globulin Ratio 1.0L CBC/BMP Laboratory Tests 04/08/21 07:03 Microbiology Microbiology 04/04/21 Blood Culture - Preliminary, Resulted No Growth after 72 hours. All specime... 04/04/21 Respiratory Virus Panel (PCR) (MARIO) - Final, Complete Coronavirus Oc43 04/04/21 - Final, Complete 04/04/21 Gram Stain - Final, Complete 04/04/21 CSF Culture - Final, Complete 04/04/21 Urine Culture - Final, Complete 04/04/21 Blood Culture - Preliminary, Resulted No Growth after 72 hours. All specime... Ilene Han MD April 08, 2021 20:24
[2021-04-08 22:00] VITALS: BP 125/64
[2021-04-09] MEDS: ACYCLOVIR 500 MG in D5W MINI-BAG PLUS 100 ML IV SCH ×2 (02:05→09:34)
[2021-04-09] MEDS: ACETAMINOPHEN TAB 650MG DOSE (2X325MG) PO PRN ×2 (02:10→09:37)
[2021-04-09] MEDS: KETOROLAC 30 MG/ML 1ML VIAL IV PRN ×2 (03:37→15:02)
[2021-04-09 06:00] VITALS: BP 126/78
[2021-04-09] MEDS: SODIUM CHLORIDE 0.9% INJ 10 ML SYR IV SCH (06:02)
[2021-04-09 06:23] LABS: HEMATOCRIT 40.1 % (36.0-47.0); HEMOGLOBIN 13.9 g/dl (12.0-15.5); MEAN CORPUSCULAR HEMOGLOBIN 31.1 pg (27.0-33.0); MEAN CORPUSCULAR HGB CONC 34.7 g/dl (32.0-36.5); MEAN CORPUSCULAR VOLUME 89.7 fl (80.0-96.0); PLATELET COUNT, AUTOMATED 285 10^3/uL (150-450); RED BLOOD COUNT 4.47 10^6/uL (4.00-5.40); WHITE BLOOD COUNT 9.3 10^3/uL (4.0-10.0)
[2021-04-09 06:50] LABS: ALBUMIN 3.3 GM/DL (3.2-5.2); ALT/SGPT 52 U/L (12-78); BILIRUBIN,TOTAL 0.3 MG/DL (0.2-1.0); BLOOD UREA NITROGEN 12 MG/DL (7-18); CALCIUM LEVEL 8.9 MG/DL (8.5-10.1); CARBON DIOXIDE LEVEL 27 MEQ/L (21-32); CHLORIDE LEVEL 99 MEQ/L (98-107); GLOMERULAR FILTRATION RATE > 60.0 (>51); GLUCOSE, FASTING 110 MG/DL (70-100); POTASSIUM SERUM 4.3 MEQ/L (3.5-5.1); SODIUM LEVEL 134 MEQ/L (136-145); TOTAL PROTEIN 6.7 GM/DL (6.4-8.2)
[2021-04-09] MEDS: ENOXAPARIN 40MG/0.4ML SYRINGE (J1650 PER 10MG) SC SCH (09:34)
[2021-04-09] MEDS ORDERED: [UNRECOGNIZED DRUG - CODE] IV (10:02)
--- NOTE | 2021-04-09 10:52 | DSES ---
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 SECONDARY DIAGNOSES: 1. Right pleural effusion. 2. Coronavirus infection. 3. Possible lung nodules. 4. History of recurrent Herpes simplex viral infection on prophylactic Valtrex. 5. Elevated liver function tests probably due to acute infection. PRIMARY CARE PHYSICIAN: Suzan Coleman NP at the [facility]. HISTORY: Patient had recently been in the hospital 04/01- for intractable nausea and vomiting. She returned to the Emergency Room with a severe headache and similar symptoms. She has a history of recurrent right buttocks Herpes simplex virus on suppressive antibiotic therapy. She underwent lumbar puncture with a herpetic infection. For details see physical on admission. HOSPITAL COURSE: The patient was admitted, placed on IV Acyclovir. CSF cultures were negative for bacteria. CSF had 7 white cells, glucose 79, protein of 46. Herpes simplex I and II IgG antibodies were both high. HIV was negative. Lyme was negative. West Nile is pending. She responded to the IV acyclovir. Every day she became less delirious. Mental status returned to baseline. Today she is ready to go home. She has a mild headache but she is fully alert, conversant, oriented, and had good content to her speech. PHYSICAL EXAM: VITAL SIGNS: She is afebrile. Blood pressure is 126/78. Vital signs per flow sheet. HEENT: Unremarkable. NECK: Supple. LUNGS: Clear. HEART: Regular rate and rhythm without murmur. ABDOMEN: Soft, nontender. No masses. EXTREMITIES: Normal strength, reflexes, sensation in upper extremities. LABS: Today white count 9.3, hemoglobin 13.9, platelets 285. Sodium 134, potassium 4.3, BUN 12, creatinine 0.5, glucose 110. Urinalysis looked contaminated. Urine culture was negative. CSF results summarized above. DISPOSITION: Discharged home in improved and stable condition. Follow up with primary care provider in a week. Off work until she sees her primary care provider. She will be on acyclovir intravenously through a PICC line. This is being placed today, 500 mg via IV every 8 hours for a total of 14 days. This is her fifth day of therapy. She can use Tylenol as needed for pain, ibuprofen as needed for pain. Activity as tolerated. No added salt diet. Off work until she sees her primary care provider. Follow up with Dr. Pierce per her office.
[2021-04-09 14:00] VITALS: BP 119/71
[2021-04-09] MEDS ORDERED: LIDOCAINE 1% MDV 20ML VIAL As Ordered ONE (14:19)
[2021-04-09 14:20] VITALS: BP 130/71
[2021-04-09] MEDS ORDERED: KETOROLAC 30 MG/ML 1ML VIAL As Ordered ONE (14:48)
--- NOTE | 2021-04-09 17:06 | REP ---
PROCEDURE NAME: PICC LINE INSERTION W/SITERITE CLINICAL INFORMATION: has midline, needs PICC line instead per infusion team. COMPARISON: None. PROCEDURE DESCRIPTION: The procedure was performed by BASIA Menard, under the direct supervision of Dr. Woods. The risks and benefits of the procedure were explained to the patient and an informed consent was obtained both verbally and written. Directly prior to the start of the procedure a formal time-out was completed in the procedure room. The patient has a pre-existing midline catheter that was placed 04/08/2021 in the left basilic vein. It is requested that this midline catheter be exchanged for a PICC line. The skin and pre-existing midline catheter was prepped and draped in sterile fashion. A 0.018 guidewire was inserted through the pre-existing midline and advanced to the level of SVC using fluoroscopic guidance. The midline catheter removed and a 4.5 Arabic dilator and peel-away sheath was inserted over the guidewire. A 4.5 Arabic single lumen catheter was cut to a length of 35 cm. The dilator was removed and the catheter was inserted over the guidewire with the tip ending at the level of the SVC. The peel-away sheath was removed and the catheter was flushed with heparinized saline as per hospital protocol. The catheter was affixed to the skin and a sterile dressing was applied. The patient tolerated the procedure well and there were no immediate complications. CONCLUSION: Midline catheter in the left basilic vein exchanged to a PICC line. 0.1 minutes of fluoroscopy time was utilized for this procedure. Some fluoroscopic images are performed with last image hold technology. These images require no additional radiation. <Electronically signed by Radha Rangel > 04/09/21 [id number] <Electronically signed by Mayur Woods > 04/09/21 [id number]
[2021-04-11 14:17] LABS: WEST NILE VIRUS ANTIBODY IgG Negative (Negative); WEST NILE VIRUS ANTIBODY IgM Negative (Negative)
== END 2021-04-09 16:30 | disposition home health service (06) | DRG 50 ==
LOC: M ED 13:44 → EDBD 13:44 → M ED INP 17:21 → ENRESERV 18:06 → M PCU 18:44 → M MSPAV 04-06 11:30
PROVIDERS: ADMIT Internal Medicine; ATTEND Family Medicine
PROC: 009U3ZX Drainage of Spinal Canal, Percutaneous Approach, Diagnostic (ICD-10-PCS; 2021-04-04)
PROC: 05HC33Z Insertion of Infusion Device into Left Basilic Vein, Percutaneous Approach (ICD-10-PCS; 2021-04-08)
PROC: 02HV33Z Insertion of Infusion Device into Superior Vena Cava, Percutaneous Approach (ICD-10-PCS; principal; 2021-04-09 12:00)
DX: B02.0 Zoster encephalitis (principal); R74.01 Elevation of levels of liver transaminase levels; R91.8 Other nonspecific abnormal finding of lung field; Z79.899 Other long term (current) drug therapy; Z87.891 Personal history of nicotine dependence; Z20.822 Contact with and (suspected) exposure to COVID-19

== ENCOUNTER → 2021-04-16 | Outpatient (REF) | payer BC ==
[~2021-04-16] MED LIST changes: +IBUP200C28 PO; +ONDA4TAB6 PO; +[UNRECOGNIZED DRUG - CODE] IV
[2021-04-16 17:57] LABS: BASO # 0.1 10^3/uL (0.0-0.2); BASO % 0.5 % (0.0-1.0); EOS # 0.1 10^3/uL (0.0-0.5); EOS % 0.7 % (0.0-3.0); HEMATOCRIT 38.8 % (36.0-47.0); HEMOGLOBIN 12.8 g/dl (12.0-15.5); LYMPH # 2.7 10^3/uL (1.5-5.0); MEAN CORPUSCULAR HEMOGLOBIN 30.8 pg (27.0-33.0); MEAN CORPUSCULAR VOLUME 93.3 fl (80.0-96.0); MONO % 8.2 % (2.0-8.0); NEUTROPHILS # 8.3 10^3/uL (1.5-8.5); PLATELET COUNT, AUTOMATED 304 10^3/uL (150-450); RED BLOOD COUNT 4.16 10^6/uL (4.00-5.40); WHITE BLOOD COUNT 12.1 10^3/uL (4.0-10.0)
[2021-04-16 18:23] LABS: ERYTHROCYTE SEDIMENTATION RATE 13 mm/hr (0-30)
[2021-04-16 18:35] LABS: ALBUMIN 2.3 GM/DL (3.2-5.2); ALT/SGPT 25 U/L (12-78); BILIRUBIN,TOTAL 0.2 MG/DL (0.2-1.0); BLOOD UREA NITROGEN 11 MG/DL (7-18); CALCIUM LEVEL 6.4 MG/DL (8.5-10.1); CARBON DIOXIDE LEVEL 21 MEQ/L (21-32); CHLORIDE LEVEL 110 MEQ/L (98-107); CREATININE FOR GFR 0.34 MG/DL (0.55-1.30); GLOMERULAR FILTRATION RATE > 60.0 (>51); GLUCOSE, FASTING 102 MG/DL (70-100); POTASSIUM SERUM 2.7 MEQ/L (3.5-5.1); SODIUM LEVEL 142 MEQ/L (136-145); TOTAL PROTEIN 4.8 GM/DL (6.4-8.2)
--- NOTE | 2021-04-16 20:18 | IPNPDOC ---
Text Note Date of Service The patient was seen on 04/16/21. NOTE Received a call from laboratory [facility] with critical lab Potassium is 2.7. I gutierrez d patient and Mrs. Tolentino stated that Dr. Pierce ordered her laboratory testing for today. I informed patient of her low Potassium of 2.7. Patient says her Potassium was low like this when she was hospitalized and has an appointment with Dr. Pierce on April. She reports of being instructed to eat 1 banana a day for her low Potassium level at hospital discharge. I instructed patient to come to the ER for possible IV Potassium replacements if she starts to experience racing heart beat, pounding heart beat, feeling generalized weakness/muscle weakness, muscle twitching, shortness of breath and to be sure to notify Dr. Pierce of her low Potassium level in the morning. Patient verbalized understanding and said she will call Dr. Pierce and or Dr Cardoso her PCP in the morning. Puneet VELOZ, I+O VSPuneet, I+O Laboratory Tests 04/16/21 14:30 ALEXSANDRA MCHUGH CARD DECORATOR Apr 16, 2021 20:18
== END ==
LOC: M LAB REF 16:08
PROVIDERS: ATTEND Internal Medicine
DX: B00.4 Herpesviral encephalitis (principal)

== ENCOUNTER → 2021-04-24 | Outpatient (REF) | payer BC ==
[2021-04-24 15:26] LABS: BASO % 0.3 % (0.0-1.0); EOS # 0.2 10^3/uL (0.0-0.5); EOS % 1.8 % (0.0-3.0); HEMATOCRIT 39.9 % (36.0-47.0); HEMOGLOBIN 13.5 g/dl (12.0-15.5); LYMPH # 2.3 10^3/uL (1.5-5.0); LYMPH % 25.9 % (24.0-44.0); MEAN CORPUSCULAR HEMOGLOBIN 31.7 pg (27.0-33.0); MEAN CORPUSCULAR HGB CONC 33.8 g/dl (32.0-36.5); MEAN CORPUSCULAR VOLUME 93.7 fl (80.0-96.0); MONO # 0.6 10^3/uL (0.0-0.8); MONO % 7.4 % (2.0-8.0); NEUTROPHILS # 5.6 10^3/uL (1.5-8.5); NEUTROPHILS % 64.4 % (36.0-66.0); PLATELET COUNT, AUTOMATED 302 10^3/uL (150-450); RED BLOOD COUNT 4.26 10^6/uL (4.00-5.40); WHITE BLOOD COUNT 8.7 10^3/uL (4.0-10.0)
[2021-04-24 16:55] LABS: BLOOD UREA NITROGEN 19 MG/DL (7-18); CALCIUM LEVEL 9.4 MG/DL (8.5-10.1); CARBON DIOXIDE LEVEL 29 MEQ/L (21-32); CHLORIDE LEVEL 103 MEQ/L (98-107); CREATININE FOR GFR 0.59 MG/DL (0.55-1.30); GLOMERULAR FILTRATION RATE > 60.0 (>51); GLUCOSE, FASTING 96 MG/DL (70-100); POTASSIUM SERUM 4.6 MEQ/L (3.5-5.1); SODIUM LEVEL 139 MEQ/L (136-145)
== END ==
LOC: M SFHCPLAZ 13:05
PROVIDERS: ATTEND Internal Medicine Infectious Disease
DX: E87.6 Hypokalemia (principal); G04.90 Encephalitis and encephalomyelitis, unspecified

== ENCOUNTER → 2021-08-09 | Outpatient (CLI) | payer BC ==
--- NOTE | 2021-08-09 11:48 | REPMRS ---
Patient History The patient states she had a clinical breast exam in 2020. Family history of colorectal cancer at age 50 or over in maternal grandfather, breast cancer at age 57 in maternal cousin. states no breast complaints today. Patient has signed MRS History Sheet. Digital Woman Screen Mammo: August 09, 2021 - Exam #: [id number] Bilateral CC and MLO view(s) were taken. Technologist: RT Gerardo Prior study comparison: September 13, 2019, bilateral digital woman screen mammo performed at [facility]. April 01, 2016, digital woman screen mammo performed at [facility]. FINDINGS: The breast tissue is heterogeneously dense. This may lower the sensitivity of mammography. Screening. Digital screening (2D) mammography was performed bilaterally in the CC and MLO projections. Additionally, breast tomosynthesis (3D mammography) was performed bilaterally in the CC and MLO projections. Todays exam was compared to the prior exam/exams. By history, the patient has no complaints of a palpable breast abnormality or other significant breast complaints. The Volpara volumetric breast density category is C, the breasts are heterogenously dense which may obscure small masses. The breasts are unchanged in size and shape. There are no khris-soft tissue densities or spiculated masses. There is no internal architectural distortion. There are no suspicious khris-calcific clusters. Skin thickening or nipple retraction is not present. IMPRESSION: BI-RADS Category 2- Benign Findings. There is no evidence of malignant alteration of the breasts. Followup examination recommended in one year. This mammogram was read with the assistance of [facility] [employer],an FDA approved computer aided detection system for mammography. The lifetime Tyrer-Cuzick score is 8.1% Negative x-ray reports should not delay surgical consultation if a dominant or clinically suspicious mass is present. Not all breast cancers can be identified by mammography. Therefore, we recommend that you continue to perform regular breast self-examination and physical examination and then promptly contact your physician of any concerns or changes. Adenosis and dense breasts may obscure an underlying neoplasm. No significant changes when compared with prior studies. Assessment: BI-RADS/ACR category 2 mammogram. Benign Findings. Recommendation Routine screening mammogram of both breasts in 1 year. Electronically Signed By: Keven Duenas MD 08/09/21 [id number]
== END ==
LOC: M WHC 09:23
PROVIDERS: ATTEND Advanced Practice Midwife
DX: Z12.31 Encounter for screening mammogram for malignant neoplasm of breast (principal)

== ENCOUNTER 2021-08-17 13:20 | Emergency (ER) | payer BC ==
[~2021-08-17] VITALS: Ht 165.1 cm; Wt 52.1 kg
[2021-08-17] MEDS ORDERED: NS 1,000 ML IV ONE ×2 (13:55→15:25)
[2021-08-17] MEDS ORDERED: ONDANSETRON 4MG/2ML VIAL IV ONE (13:55)
[2021-08-17 14:41] LABS: BASO % 0.2 % (0.0-1.0); EOS % 0.1 % (0.0-3.0); HEMATOCRIT 45.7 % (36.0-47.0); HEMOGLOBIN 15.7 g/dl (12.0-15.5); LYMPH # 1.4 10^3/uL (1.5-5.0); LYMPH % 13.2 % (24.0-44.0); MEAN CORPUSCULAR HEMOGLOBIN 30.3 pg (27.0-33.0); MEAN CORPUSCULAR HGB CONC 34.4 g/dl (32.0-36.5); MEAN CORPUSCULAR VOLUME 88.2 fl (80.0-96.0); MONO # 0.8 10^3/uL (0.0-0.8); MONO % 7.5 % (2.0-8.0); NEUTROPHILS # 8.6 10^3/uL (1.5-8.5); NEUTROPHILS % 78.6 % (36.0-66.0); PLATELET COUNT, AUTOMATED 268 10^3/uL (150-450); RED BLOOD COUNT 5.18 10^6/uL (4.00-5.40); WHITE BLOOD COUNT 10.9 10^3/uL (4.0-10.0)
[2021-08-17 14:53] LABS: RSV AMPLIFICATION NEGATIVE (NEGATIVE)
[2021-08-17 15:01] LABS: ALT/SGPT 21 U/L (12-78); BILIRUBIN,DIRECT 0.2 MG/DL (0.0-0.2); BILIRUBIN,TOTAL 0.8 MG/DL (0.2-1.0); BLOOD UREA NITROGEN 16 MG/DL (7-18); CALCIUM LEVEL 9.6 MG/DL (8.5-10.1); CARBON DIOXIDE LEVEL 29 MEQ/L (21-32); CHLORIDE LEVEL 97 MEQ/L (98-107); CREATININE FOR GFR 0.76 MG/DL (0.55-1.30); GLOMERULAR FILTRATION RATE > 60.0 (>51); GLUCOSE, FASTING 140 MG/DL (70-100); LIPASE 101 U/L (73-393); POTASSIUM SERUM 3.2 MEQ/L (3.5-5.1); SODIUM LEVEL 133 MEQ/L (136-145); TOTAL PROTEIN 8.2 GM/DL (6.4-8.2)
[2021-08-17] MEDS ORDERED: KCL 10MEQ/100ML SWI (KRUN) 10 MEQ in IV 1 EA IV ONE (15:25)
[2021-08-17] MEDS ORDERED: POTASSIUM CHLORIDE 10MEQ SR TABLET PO ONE (15:25)
[2021-08-17] MEDS ORDERED: ONDA4TAB6 PO ×2 (18:04→20:16)
[2021-08-17 18:30] VITALS: BP 162/89
== END 2021-08-17 18:45 | disposition home or self-care (01) ==
LOC: M ED 13:20
DX: E86.0 Dehydration (principal); E87.6 Hypokalemia
CPT/HCPCS: 36415; 80048; 80076; 81001; 83605; 83690; 85025; 87086; 87631; 96361; 96365; 96366; 96375; 99284; J2405

== ENCOUNTER → 2021-08-26 | Outpatient (CLI) | payer BC ==
[2021-08-26 12:20] LABS: ALBUMIN 3.2 GM/DL (3.2-5.2); ALT/SGPT 18 U/L (12-78); BILIRUBIN,TOTAL 0.3 MG/DL (0.2-1.0); BLOOD UREA NITROGEN 15 MG/DL (7-18); CALCIUM LEVEL 8.3 MG/DL (8.5-10.1); CARBON DIOXIDE LEVEL 31 MEQ/L (21-32); CHLORIDE LEVEL 104 MEQ/L (98-107); CHOLESTEROL LEVEL 171 MG/DL (<200); CHOLESTEROL RISK RATIO 3.717 (<5); CREATININE FOR GFR 0.68 MG/DL (0.55-1.30); GLOMERULAR FILTRATION RATE > 60.0 (>51); GLUCOSE, FASTING 96 MG/DL (70-100); HDL CHOLESTEROL 46 MG/DL (>40); LDL CHOLESTEROL 92 MG/DL (<100); NON-HDL-C 125 MG/DL; POTASSIUM SERUM 4.2 MEQ/L (3.5-5.1); SODIUM LEVEL 138 MEQ/L (136-145); TOTAL PROTEIN 6.5 GM/DL (6.4-8.2); TRIGLYCERIDES LEVEL 167 MG/DL (<150)
[2021-08-26 12:21] LABS: TOTAL 25(OH) VITAMIN D 24.8 NG/ML (30.0-100.0)
== END ==
LOC: M PLALAB 07:35
PROVIDERS: ATTEND Nurse Practitioner Family
DX: G44.89 Other headache syndrome (principal); E03.9 Hypothyroidism, unspecified; Z13.220 Encounter for screening for lipoid disorders; E55.9 Vitamin D deficiency, unspecified

== ENCOUNTER → 2021-11-18 | Outpatient (REF) | LOC: M LABSMTC 13:51 | PROVIDERS: ATTEND Family Medicine | DX: Z11.52 Encounter for screening for COVID-19 (principal); Z20.822 Contact with and (suspected) exposure to COVID-19 ==

== ENCOUNTER → 2022-03-27 | Outpatient (REF) | payer BC | LOC: M LAB REF 14:55 | PROVIDERS: ATTEND Physician Assistant | DX: R05.9 Cough, unspecified (principal); R53.83 Other fatigue ==

== ENCOUNTER → 2022-05-01 | Outpatient (REF) | LOC: M EMP 08:47 | PROVIDERS: ATTEND Family Medicine | DX: Z11.52 Encounter for screening for COVID-19 (principal) ==

== ENCOUNTER → 2023-04-16 | Outpatient (CLI) | payer BC ==
[2023-04-16 14:04] LABS: BASO % 0.3 % (0.0-1.0); EOS # 0.3 10^3/uL (0.0-0.5); EOS % 4.2 % (0.0-3.0); HEMATOCRIT 42.8 % (36.0-47.0); LYMPH % 29.5 % (24.0-44.0); MEAN CORPUSCULAR HEMOGLOBIN 30.1 pg (27.0-33.0); MEAN CORPUSCULAR HGB CONC 32.7 g/dl (32.0-36.5); MONO # 0.5 10^3/uL (0.0-0.8); MONO % 6.8 % (2.0-8.0); NEUTROPHILS # 4.1 10^3/uL (1.5-8.5); NEUTROPHILS % 58.9 % (36.0-66.0); PLATELET COUNT, AUTOMATED 275 10^3/uL (150-450); RED BLOOD COUNT 4.65 10^6/uL (4.00-5.40); WHITE BLOOD COUNT 6.9 10^3/uL (4.0-10.0)
[2023-04-16 14:21] LABS: HEMOGLOBIN A1c 5.2 % (4.0-6.0)
[2023-04-16 14:37] LABS: ALBUMIN 3.9 G/DL (3.2-5.2); ALKALINE PHOSPHATASE 82 U/L (46-116); ALT/SGPT 35 U/L (7.0-40); AST/SGOT 34 U/L (<34); BILIRUBIN,TOTAL 0.4 MG/DL (0.3-1.2); BLOOD UREA NITROGEN 15 MG/DL (9-23); CALCIUM LEVEL 9.3 MG/DL (8.5-10.1); CARBON DIOXIDE LEVEL 29 MMOL/L (20-31); CHLORIDE LEVEL 104 MMOL/L (98-107); GLOMERULAR FILTRATION RATE > 60.0 (>51); GLUCOSE, FASTING 73 MG/DL (60-100); POTASSIUM SERUM 4.5 MMOL/L (3.5-5.1); SODIUM LEVEL 139 MMOL/L (136-145); TOTAL PROTEIN 7.1 G/DL (5.7-8.2)
[2023-04-16 15:16] LABS: HEPATITIS C VIRUS ABY INDEX 0.1 INDEX (<0.8)
== END ==
LOC: M PLALAB 09:41
PROVIDERS: ATTEND Family Medicine
DX: E55.9 Vitamin D deficiency, unspecified (principal); R07.9 Chest pain, unspecified

== ENCOUNTER → 2023-04-23 | Outpatient (CLI) | payer BC | LOC: M WHC 09:09 | PROVIDERS: ATTEND Family Medicine | DX: Z12.31 Encounter for screening mammogram for malignant neoplasm of breast (principal) ==

== ENCOUNTER → 2023-05-14 | Outpatient (CLI) | payer BC | LOC: M RAD 13:27 | PROVIDERS: ATTEND Family Medicine | DX: Z12.2 Encounter for screening for malignant neoplasm of respiratory organs (principal); Z87.891 Personal history of nicotine dependence ==

== ENCOUNTER → 2024-02-10 | Outpatient (REF) | LOC: M EMP 10:50 | PROVIDERS: ATTEND Family Medicine | DX: Z11.52 Encounter for screening for COVID-19 (principal) ==

== ENCOUNTER → 2024-06-09 | Outpatient (CLI) | payer BC ==
[~2024-06-09] MED LIST changes: +ONDA-282 PO; -ONDA4TAB6 PO
[2024-06-09 10:29] LABS: BASO % 0.5 % (0.0-1.0); EOS # 0.3 10^3/uL (0.0-0.5); EOS % 5.9 % (0.0-3.0); HEMATOCRIT 43.7 % (36.0-47.0); HEMOGLOBIN 14.8 g/dl (12.0-15.5); LYMPH # 1.9 10^3/uL (1.5-5.0); MEAN CORPUSCULAR HEMOGLOBIN 30.4 pg (27.0-33.0); MEAN CORPUSCULAR HGB CONC 33.9 g/dl (32.0-36.5); MEAN CORPUSCULAR VOLUME 89.7 fl (80.0-96.0); MONO # 0.4 10^3/uL (0.0-0.8); MONO % 6.7 % (2.0-8.0); NEUTROPHILS # 3.2 10^3/uL (1.5-8.5); NEUTROPHILS % 54.7 % (36.0-66.0); PLATELET COUNT, AUTOMATED 273 10^3/uL (150-450); RED BLOOD COUNT 4.87 10^6/uL (4.00-5.40); WHITE BLOOD COUNT 5.8 10^3/uL (4.0-10.0)
[2024-06-09 10:40] LABS: FOLLICLE STIMULATING HORMONE 73.6 mIU/ML; LUTEINIZING HORMONE 51.8 mIU/ML; TOTAL 25(OH) VITAMIN D 37.8 NG/ML (20.0-100.0)
[2024-06-09 10:49] LABS: ALBUMIN 3.6 G/DL (3.2-5.2); ALKALINE PHOSPHATASE 83 U/L (46-116); ALT/SGPT 21 U/L (7.0-40); AST/SGOT 18 U/L (<34); BILIRUBIN,TOTAL 0.6 MG/DL (0.3-1.2); BLOOD UREA NITROGEN 17 MG/DL (9-23); CALCIUM LEVEL 9.5 MG/DL (8.5-10.1); CARBON DIOXIDE LEVEL 27 MMOL/L (20-31); CHLORIDE LEVEL 109 MMOL/L (98-107); CREATININE FOR GFR 0.57 MG/DL (0.55-1.30); GLOMERULAR FILTRATION RATE > 60.0 (>51); GLUCOSE, FASTING 115 MG/DL (60-100); POTASSIUM SERUM 4.7 MMOL/L (3.5-5.1); SODIUM LEVEL 137 MMOL/L (136-145); TOTAL PROTEIN 6.8 G/DL (5.7-8.2)
== END ==
LOC: M PLALAB 07:56
PROVIDERS: ATTEND Family Medicine
DX: R23.3 Spontaneous ecchymoses (principal); Z12.11 Encounter for screening for malignant neoplasm of colon; R23.2 Flushing; R63.4 Abnormal weight loss

== ENCOUNTER → 2024-07-01 | Outpatient (REF) | LOC: M EMP 11:45 | PROVIDERS: ATTEND Family Medicine | DX: Z11.52 Encounter for screening for COVID-19 (principal) ==

== ENCOUNTER → 2024-07-06 | Outpatient (CLI) | payer BC | LOC: M RAD 06:58 | PROVIDERS: ATTEND Family Medicine | DX: Z12.2 Encounter for screening for malignant neoplasm of respiratory organs (principal); F17.211 Nicotine dependence, cigarettes, in remission; R91.1 Solitary pulmonary nodule; R91.8 Other nonspecific abnormal finding of lung field ==

== ENCOUNTER → 2024-08-25 | Outpatient (REF) | payer BC | LOC: M SFHCPLAZ 12:54 | PROVIDERS: ATTEND Physician Assistant Medical | DX: J06.9 Acute upper respiratory infection, unspecified (principal); B97.89 Other viral agents as the cause of diseases classified elsewhere; B97.10 Unspecified enterovirus as the cause of diseases classified elsewhere ==

== ENCOUNTER → 2024-09-13 | Outpatient (REF) | payer BC ==
[2024-09-13 16:10] LABS: APPEARANCE, URINE TURBID (CLEAR); BACTERIA, URINE AUTO NEGATIVE (NEGATIVE); BILIRUBIN, URINE AUTO NEGATIVE (NEGATIVE); BLOOD, URINE BLOOD 2+ (NEGATIVE); COLOR, URINE AMBER (YELLOW); GLUCOSE, URINE (UA) AUTO NEGATIVE (NEGATIVE); KETONE, URINE AUTO TRACE mg/dL (NEGATIVE); LEUKOCYTE ESTERASE, URINE AUTO NEGATIVE (NEGATIVE); MUCUS, URINE SMALL (NEGATIVE); NITRITE, URINE AUTO NEGATIVE (NEGATIVE); PROTEIN, URINE AUTO 1+ mg/dL (NEGATIVE); RBC, URINE AUTO 4 /HPF (0-3); SPECIFIC GRAVITY URINE AUTO 1.024 (1.002-1.035); SQUAMOUS EPITHELIAL CELL UR AU 1 /HPF (0-6); UROBILINOGEN, URINE AUTO 0.2 mg/dL (0.0-2.0); WBC, URINE AUTO 2 /HPF (0-3)
== END ==
LOC: M SFHCWAGY 15:13
PROVIDERS: ATTEND Family Medicine
DX: R35.1 Nocturia (principal)

== ENCOUNTER → 2024-10-10 | Outpatient (REF) | payer BC | LOC: M SMT 17:03 | PROVIDERS: ATTEND Physician Assistant | DX: R31.21 Asymptomatic microscopic hematuria (principal) ==

== ENCOUNTER → 2024-10-11 | Outpatient (REF) | payer BC ==
[2024-10-11 18:45] LABS: APPEARANCE, URINE HAZY (CLEAR); BACTERIA, URINE AUTO NEGATIVE (NEGATIVE); BILIRUBIN, URINE AUTO NEGATIVE (NEGATIVE); BLOOD, URINE BLOOD 2+ (NEGATIVE); COLOR, URINE YELLOW (YELLOW); GLUCOSE, URINE (UA) AUTO NEGATIVE (NEGATIVE); KETONE, URINE AUTO NEGATIVE (NEGATIVE); LEUKOCYTE ESTERASE, URINE AUTO TRACE (NEGATIVE); MUCUS, URINE SMALL (NEGATIVE); NITRITE, URINE AUTO NEGATIVE (NEGATIVE); PROTEIN, URINE AUTO 1+ mg/dL (NEGATIVE); RBC, URINE AUTO 12 /HPF (0-3); SPECIFIC GRAVITY URINE AUTO 1.021 (1.002-1.035); SQUAMOUS EPITHELIAL CELL UR AU 1 /HPF (0-6); UROBILINOGEN, URINE AUTO 0.2 mg/dL (0.0-2.0); WBC, URINE AUTO 7 /HPF (0-3)
== END ==
LOC: M SMT 17:00
PROVIDERS: ATTEND Physician Assistant
DX: R31.21 Asymptomatic microscopic hematuria (principal)

== ENCOUNTER → 2024-10-27 | Outpatient (CLI) | payer BC ==
[~2024-10-27] MED LIST changes: +ISOVUE-370 76% 100ML VIAL As Ordered ONE
== END ==
LOC: M RAD 08:25
PROVIDERS: ATTEND Physician Assistant
DX: R31.21 Asymptomatic microscopic hematuria (principal); J98.11 Atelectasis; R93.2 Abnormal findings on diagnostic imaging of liver and biliary tract
CPT/HCPCS: 74178; Q9967

== ENCOUNTER → 2025-02-06 | Outpatient (CLI) | payer BC ==
[~2025-02-06] MED LIST changes: -ISOVUE-370 76% 100ML VIAL As Ordered ONE
[2025-02-06 10:43] LABS: BASO % 0.2 % (0.0-1.0); EOS % 0.4 % (0.0-3.0); HEMOGLOBIN 15.7 g/dl (12.0-15.5); LYMPH # 2.9 10^3/uL (1.5-5.0); LYMPH % 36.4 % (24.0-44.0); MEAN CORPUSCULAR HEMOGLOBIN 29.7 pg (27.0-33.0); MEAN CORPUSCULAR HGB CONC 34.1 g/dl (32.0-36.5); MEAN CORPUSCULAR VOLUME 87.1 fl (80.0-96.0); MONO # 0.9 10^3/uL (0.0-0.8); MONO % 10.9 % (2.0-8.0); NEUTROPHILS # 4.2 10^3/uL (1.5-8.5); NEUTROPHILS % 51.9 % (36.0-66.0); PLATELET COUNT, AUTOMATED 328 10^3/uL (150-450); RED BLOOD COUNT 5.28 10^6/uL (4.00-5.40)
[2025-02-06 11:26] LABS: ALBUMIN 3.3 G/DL (3.2-5.2); ALKALINE PHOSPHATASE 75 U/L (35-104); ALT/SGPT 19 U/L (7.0-40); AST/SGOT 16 U/L (<34); BILIRUBIN,TOTAL 0.8 MG/DL (0.3-1.2); BLOOD UREA NITROGEN 17 MG/DL (9-23); CALCIUM LEVEL 9.1 MG/DL (8.5-10.1); CARBON DIOXIDE LEVEL 29 MMOL/L (20-31); CHLORIDE LEVEL 100 MMOL/L (98-107); CREATININE FOR GFR 0.55 MG/DL (0.55-1.30); GLOMERULAR FILTRATION RATE > 60.0 (>51); GLUCOSE, FASTING 98 MG/DL (60-100); POTASSIUM SERUM 3.8 MMOL/L (3.5-5.1); SODIUM LEVEL 137 MMOL/L (136-145); TOTAL PROTEIN 7.3 G/DL (5.7-8.2)
[2025-02-06 11:38] LABS: PROCALCITONIN 0.08 ng/ml
== END ==
LOC: M LAB 09:54
PROVIDERS: ATTEND Physician Assistant Medical
DX: R53.81 Other malaise (principal); R53.83 Other fatigue

== ENCOUNTER → 2025-03-08 | Outpatient (CLI) | payer BC | LOC: M WHC 09:33 | PROVIDERS: ATTEND Family Medicine | DX: Z12.31 Encounter for screening mammogram for malignant neoplasm of breast (principal); R92.333 Mammographic heterogeneous density, bilateral breasts ==

== ENCOUNTER → 2025-03-14 | Outpatient (CLI) | payer BC | LOC: M WHC 14:05 | PROVIDERS: ATTEND Family Medicine | DX: R92.311 Mammographic fatty tissue density, right breast (principal) | CPT/HCPCS: 77065; G0279 ==